=== PATIENT | male | born 1945 | race Caucasian/White ===

== ENCOUNTER 2017-01-22 19:39 | Emergency (ER) | payer OTHER ==
[~2017-01-22] VITALS: Ht 177.8 cm; Wt 79.4 kg
[2017-01-22 19:51] VITALS: BP 149/89
[2017-01-22 20:20] LABS: Basophils # (auto) 0 uL; Eosinophils # (auto) 0.1 uL; Eosinophils % (auto) 1.6 % (0.0-7.0); Hematocrit 34.3 % (41.0-53.0); Hemoglobin 11.5 g/dL (13.5-17.5); Lymphocytes # (auto) 0.7 uL; Lymphocytes % (auto) 8.2 % (10.0-50.0); Mean Corpuscular Hemoglobin 30.5 pg (28.0-32.0); Mean Corpuscular Hgb Conc. 33.4 g/dL (32.0-36.0); Mean Corpuscular Volume 91.3 fL (80.0-100.0); Mean Platelet Volume 7.9 fL (7.4-10.4); Monocytes # (auto) 0.3 uL; Monocytes % (auto) 3.2 % (0.0-12.0); Neutrophils # (auto) 7.7 uL; Platelet Count (auto) 240 10^3/uL (140-450); Red Cell Distribution Width 16.9 % (11.6-16.0); White Blood Cell 8.8 10^3/uL (4.4-10.8)
[2017-01-22 20:49] LABS: Albumin 2.9 g/dL (3.4-5.0); Alkaline Phosphatase 359 U/L (45-117); Anion Gap 10 (5-15); Aspartate Aminotransferase 22 U/L (15-37); Bilirubin, Total 0.4 mg/dL (0.2-1.0); Blood Urea Nitrogen 32 mg/dL (7-18); Calcium 9.5 mg/dL (8.5-10.1); Carbon Dioxide 27 mmol/L (21-32); Chloride 100 mmol/L (98-107); GFR African American 74 mL/min; GFR Non-African American 61 mL/min; Glucose 210 mg/dL (74-106); Magnesium 1.6 mg/dL (1.6-2.6); Potassium 4.2 mmol/L (3.5-5.1); Sodium 137 mmol/L (136-145); Total Protein 7.7 g/dL (6.4-8.2)
[2017-01-23] MEDS ORDERED: LISI10TA6 PO ×2 (11:59→12:02)
[2017-01-23] MEDS ORDERED: METF-316 PO (12:00)
[2017-01-23] MEDS ORDERED: GLIP-115 PO (12:02)
[2017-01-24] MEDS ORDERED: ALBUAER3 IN (17:30)
[2017-01-24] MEDS ORDERED: IPRIH IN (17:30)
[2017-01-24] MEDS ORDERED: LEVO500T3 PO (17:30)
[2017-01-24] MEDS ORDERED: DEXTLIQ70 PO (17:30)
== END 2017-01-23 00:42 | disposition left against medical advice (07) ==
LOC: ER 19:39
DX: R06.02 Shortness of breath (principal); R05 Cough; Z53.21 Procedure and treatment not carried out due to patient leaving prior to being seen by health care provider
CPT/HCPCS: 36415; 71010; 80053; 83735; 84484; 85025; 85379; 93005; J7030

== ENCOUNTER 2020-07-06 21:32 | Inpatient (IN) | payer OTHER ==
[~2020-07-06] VITALS: Ht 177.8 cm; Wt 83.3 kg
[~2020-07-06 21:32] MED LIST: ASPI-394 PO; DEXA4TAB PO; GLIP5TAB12 PO; LISI-648 PO; MET25T PO
[2020-07-06] MEDS ORDERED: ALBUTEROL SULF 2.5 MG/0.5ML(0.5%) NEB SOLN NEB ONE (22:00)
[2020-07-06] MEDS ORDERED: methylPREDNISolone SOD SUCC 125 MG/2 ML VL IV ONE (22:00)
[2020-07-06] MEDS ORDERED: SODIUM CHLORIDE 0.9% 500 ML IV ONE (22:00)
[2020-07-06] MEDS ORDERED: IPRATROPIUM BROM 0.5 MG/2.5ML INH SOL NEB ONE (22:00)
[2020-07-06 22:31] LABS: Basophils # (auto) 0.1 10 ^3/uL (0-0.2); Eosinophils # (auto) 0 10 ^3/uL (0-0.8); Lymphocytes # (auto) 1.1 10 ^3/uL (0.4-5.4)
[2020-07-06 22:32] LABS: Basophils % (auto) 0.4 % (0.0-2.0); Eosinophils % (auto) 0.3 % (0.0-7.0); Hematocrit 21.9 % (41.0-53.0); Lymphocytes % (auto) 5.8 % (10.0-50.0); Mean Corpuscular Hemoglobin 31.8 pg (28.0-32.0); Mean Corpuscular Hgb Conc. 32.2 g/dL (32.0-36.0); Mean Corpuscular Volume 98.9 fL (80.0-100.0); Monocytes # (auto) 0.8 10 ^3/uL (0-1.3); Monocytes % (auto) 4.3 % (0.0-12.0); Neutrophils # (auto) 16.6 10 ^3/uL (1.6-8.6); Neutrophils % (auto) 89.2 % (37.0-80.0); Platelet Count (auto) 195 10^3/uL (140-450); Red Blood Cells 2.21 10^6/uL (4.5-5.90); White Blood Cell 18.6 10^3/uL (4.4-10.8)
[2020-07-06 22:52] LABS: Alanine Aminotransferase 72 U/L (16-61); Albumin 3.7 g/dL (3.4-5.0); Anion Gap 16 (5-15); Aspartate Aminotransferase 75 U/L (15-37); BUN/Creatinine Ratio 15.8; Calcium 9.7 mg/dL (8.5-10.1); Carbon Dioxide 10 mmol/L (21-32); Chloride 112 mmol/L (98-107); GFR African American 7 mL/min; GFR Non-African American 6 mL/min; Glucose 243 mg/dL (74-106); Magnesium 2.1 mg/dL (1.6-2.6); Sodium 138 mmol/L (136-145)
[2020-07-06 22:55] LABS: Alkaline Phosphatase 154 U/L (45-117); Bilirubin, Total 0.6 mg/dL (0.2-1.0); Total Protein 7.3 g/dL (6.4-8.2)
[2020-07-06 23:09] LABS: Potassium 7.4 mmol/L (3.5-5.1)
[2020-07-06 23:10] LABS: Blood Urea Nitrogen 148 mg/dL (7-18)
[2020-07-06] MEDS ORDERED: SODIUM BICARBONATE 8.4% INJ 50ML SYRINGE IV ONE (23:15)
[2020-07-06] MEDS ORDERED: CALCIUM GLUC 4.65meq/50ml D5AE 50 ML IV ONE (23:15)
[2020-07-06] MEDS ORDERED: DEXTROSE (50%) 50ML SYRG IV ONE (23:15)
[2020-07-06] MEDS ORDERED: InsuLIN REG 1unit/0.01ml Soln (100units/ml) IV ONE (23:15)
[2020-07-06] MEDS ORDERED: FUROSEMIDE 20 MG/2 ML VIAL IV ONE (23:15)
[2020-07-06] MEDS ORDERED: SODIUM ZIRCONIUM CYCL 10 GM PAK PO ONE (23:45)
[2020-07-07] VITALS (41 sets, daily range): BP systolic 81–180; BP diastolic 47–81
[2020-07-07 00:21] LABS: INR 0.99 (0.9-1.15); Partial Thromboplastin Time 22.6 sec (23.0-31.2)
[2020-07-07] MEDS ORDERED: MORPHINE SULFATE 4 MG/ML SYR/VIAL IV ONE (01:00)
[2020-07-07] MEDS ORDERED: ONDANSETRON HCL 4 MG/2 ML VIAL IV ONE (01:00)
[2020-07-07] MEDS ORDERED: SODIUM CHLORIDE 0.9% 1,000 ML IV ONE (01:15)
[2020-07-07 01:35] LABS: Urine Bacteria NONE SEEN /hpf (None Seen); Urine Blood 2+ /uL (Negative); Urine Specific Gravity 1.012 (1.001-1.035); Urine WBC 2 /hpf (0 - 3)
[2020-07-07] MEDS ORDERED: ENOXAPARIN SOD 80 MG/0.8ML SYRINGE SC ONE (01:45)
[2020-07-07] MEDS ORDERED: VANCOMYCIN 1GM/250ML 250 ML IV ONE (01:45)
[2020-07-07] MEDS ORDERED: PIPERACILLIN-TAZOB 3.375GM 100 ML IV ONE (01:45)
[2020-07-07 02:12] LABS: BUN/Creatinine Ratio 16.1; Calcium 10.3 mg/dL (8.5-10.1)
[2020-07-07 02:14] LABS: Potassium 5.9 mmol/L (3.5-5.1)
[2020-07-07 02:40] LABS: Lactic Acid w/Reflex 6.4 mmol/L (0.4-2.0)
[2020-07-07] MEDS ORDERED: ACETAMINOPHEN 325 MG TAB PO PRN (02:45)
[2020-07-07] MEDS ORDERED: ENOXAPARIN SOD 100 MG/1 ML SYRINGE SC ONE (02:45)
[2020-07-07] MEDS ORDERED: DEXTROSE (50%) 50ML SYRG IV PRN (02:45)
[2020-07-07] MEDS ORDERED: NITROGLYCERIN 0.4 MG SL TAB SL PRN (02:45)
[2020-07-07] MEDS ORDERED: TEMAZEPAM 15 MG CAP PO PRN (02:45)
[2020-07-07] MEDS ORDERED: SODIUM ZIRCONIUM CYCL 10 GM PAK PO ONE ×2 (02:45→22:00)
[2020-07-07] MEDS ORDERED: MORPHINE SULF INJ 2 MG/ML SYRINGE 1ML IV PRN (02:45)
[2020-07-07 03:12] LABS: Albumin 3.5 g/dL (3.4-5.0); CRP High Sensitivity 0.24 mg/dL (< 0.3)
[2020-07-07 03:14] LABS: Magnesium 2.1 mg/dL (1.6-2.6)
[2020-07-07 03:16] LABS: Bilirubin, Total 0.6 mg/dL (0.2-1.0)
[2020-07-07] MEDS ORDERED: LABETALOL HCL 5 MG/ML 4ML SYRINGE IV ONE (03:30)
[2020-07-07] MEDS: DOXYCYCLINE 100MG/250ML 250 ML IV SCH (04:48)
[2020-07-07] MEDS: ACCU-CHEK COMFORT CURVE STRIP VI SCH ×3 (05:57→23:01)
[2020-07-07] MEDS ORDERED: InsuLIN REG 1unit/0.01ml Soln (100units/ml) SC SCH (06:00)
[2020-07-07 07:57] LABS: Hemoglobin 7.2 g/dL (13.5-17.5)
[2020-07-07 07:58] LABS: Hematocrit 22.5 % (41.0-53.0)
[2020-07-07] MEDS ORDERED: LISINOPRIL 10 MG TAB PO SCH (10:00)
[2020-07-07] MEDS: PANTOPRAZOLE 40 MG TAB PO SCH (10:00)
[2020-07-07] MEDS: METOPROLOL TARTRATE 25 MG TAB PO SCH ×2 (10:00→22:00)
[2020-07-07] MEDS: CHOLECALCIFEROL (VITD3) 2,000 UNIT CAP PO SCH (10:00)
[2020-07-07] MEDS: ZINC SULFATE 220mg CAP or TAB PO SCH (10:00)
[2020-07-07] MEDS: ASCORBIC ACID 1,000 MG TAB PO SCH (10:00)
[2020-07-07] MEDS ORDERED: ASPirin 81 mg TAB PO SCH (10:00)
[2020-07-07] MEDS: ONDANSETRON HCL 4 MG/2 ML VIAL IV PRN (11:09)
[2020-07-07] MEDS ORDERED: HEPARIN DRIP/D5W 100UNITS/ML 250 ML IV SCH (11:31)
[2020-07-07] MEDS ORDERED: HEPARIN SODIUM (PORCINE) 5000 UNITS/ML 1ML VIAL IV ONE (11:45)
[2020-07-07] MEDS ORDERED: LIDOCAINE 2%HCL (LOCAL ANESTH.) INJ 20ML MDV ONE (11:52)
[2020-07-07] MEDS ORDERED: IODIXANOL 320MG/ML 100ML BTL IV ONE (11:52)
[2020-07-07] MEDS ORDERED: SODIUM CHL 0.9% 50 ML ONE (12:03)
[2020-07-07] MEDS ORDERED: VERAPAMIL 2.5MG/ML INJ 2ML VIAL IV ONE (12:03)
[2020-07-07] MEDS ORDERED: ANGIOMAX 250 MG VIAL IV ONE (12:03)
[2020-07-07] MEDS ORDERED: MIDAZOLAM HCL 1MG/1ML-2 ML VIAL ONE (12:04)
[2020-07-07] MEDS ORDERED: fentaNYL CITRATE 100 MCG/2 ML VL ONE (12:04)
[2020-07-07] MEDS ORDERED: SODIUM BICARBONATE 50ML VIAL 100 ML in SOD CHL 0.45% 1,000 ML IV SCH (12:30)
[2020-07-07] MEDS ORDERED: SODIUM CHL 0.9% 1000 ML BAG XX ONE (12:30)
[2020-07-07] MEDS ORDERED: HEPARIN SODIUM (PORCINE) 5000 UNITS/ML 1ML VIAL ONE ×2 (13:12→15:46)
[2020-07-07 13:32] LABS: Protein, Urine 192.6 mg/dL (0.0-11.9)
[2020-07-07 13:44] LABS: Creatinine, Urine 67 mg/dL (30.0-125.0); Sodium Urine 58 mmol/L (40-220)
--- NOTE | 2020-07-07 15:30 | NUR ---
ADMIT TO ICU-S/P CARDIAC CATH Report received from Daniela DEL VALLE. ARABELLA HIGGINS brought to bed 5-warehouse laborer following left Cardiac catheterization. Patient connected to ICU monitoring and oxygen. Patient is awake, alert, and oriented. Patient able to follow commands. Denies pain or distress at this time. Right groin used as access site. Patient educated on need to keep leg straight and flat. Patient verbalized understanding. Site assessed for any bleeding, redness or swelling. Pedal pulses on affected leg assessed for positive tissue perfusion. Patient instructed on need to notify staff immediately if any pain, burning or wetness to site, and any lower back pain. Patient educated on new cardiac medications. All questions and concerns addressed, patient verbalized understanding of all education and instruction. See notes for any further. Physical assessment complete. Alberto locked in lowest position, call light and personal belongings within reach. Will continue to monitor.
--- NOTE | 2020-07-07 16:25 | NUR ---
ALOC PT HEART RATE TRENDING 45 BPM, NOTED IT WAS LOWER THAN PATIENTS BASELINE. ATTEMPTED TO AROUSE PATIENT. PATIENT EYES OPEN AND BREATHING BUT UNABLE TO RESPOND VERBALLY. PAINFUL STIMULI USED TO GET VERBAL RESPONSE, PT UNABLE TO TRACK AND STATE HIS NAME. ASSEMBLER FAUCETS HOLDING DIALYSIS TREATMENT AT THIS TIME. BLOOD PRESSURE TRENDING 81/47. PATIENT POSITIONED SUPINE. SHORTLY AFTER DIALYSIS TREATMENT HELD, PATIENT BECAME MORE AWAKE AND ALERT. PT ABLE TO STATE FIRST AND LAST NAME, WELL BIRTHDAY. PT STATING "I FEEL MUCH BETTER NOW". PT ABLE TO CARRY ON FULL CONVERSATION. BLOOD PRESSURE RETURNED TO BASELINE 104/58.
--- NOTE | 2020-07-07 16:28 | NUR ---
PAGED PAGED REGARDING HYPOTENSION AND DIALYSIS TREATMENT. MD AWARE OF PATIENT EPISODE WITH BLOOD PRESSURE 80 SYSTOLIC AND ALERTED MENTAL STATUS. MD ORDERED FOR VASOPRESSOR THERAPY TO KEEP SYSTOLIC GREATER THAN 90, CONTINUE WITH DIALYSIS TREATMENT.
--- NOTE | 2020-07-07 17:00 | NUR ---
US CLAMP OPERATOR AT BEDSIDE FOR KIDNEY US.
[2020-07-07] MEDS: NOREPINEPHRINE 8 MG/250ML KIT 250 ML IV SCH (17:04)
--- NOTE | 2020-07-07 17:30 | NUR ---
LAB SPANISH SPEAKING NANNY AT BEDSIDE FOR BLOOD DRAW. LABS RE-TIMED DUE TO PATIENT RECEIVING DIALYSIS AT THIS TIME.
[2020-07-07] MEDS: InsuLIN REG 1unit/0.01ml Soln (100units/ml) SC SCH ×2 (18:05→23:10)
--- NOTE | 2020-07-07 18:30 | NUR ---
DIALYSIS COMPLETE NO FLUID REMOVED, JUST FILTERED.
--- NOTE | 2020-07-07 18:40 | NUR ---
ACTIVITY PT AMBULATED TO BED WITH STANDBY ASSISTANCE. PT TOLERATED ACTIVITY FAIR. WHEEZING NOTED AFTER AMBULATION. RIGHT GROIN SITE REMAINS INTACT. NO BLEEDING OR HEMATOMA NOTED. PT RESTING, EATING DINNER WITH PERSONAL BELONGINGS WITHIN REACH.
--- NOTE | 2020-07-07 18:45 | NUR ---
FAMILY SPOKE WITH ABOUT PATIENT. UPDATED ON STATUS AND PLAN OF CARE.
--- NOTE | 2020-07-07 19:18 | NUR ---
REPORT REPORT GIVEN TO JOAN DEL VALEL, CARE ENDORSED.
--- NOTE | 2020-07-07 19:20 | NUR ---
OPENING ASSUMED CARE OF PT. PT ASLEEP IN BED WITH VSS AND NO DISTRESS AT THIS TIME. ORIENTED TO UNIT, SAFETY, AND PLAN OF CARE FOR THIS EVENING. VERBALIZED UNDERSTANDING. LEVO GTT HELD BY DAYSHIFT RN FOR STABLE BP. 1/2 NS 2 AMPS BICARB RUNNING AT 50ML/HR. ALL OTHER ASSESSMENT DATA NOTED IN CHART.
[2020-07-07] MEDS ORDERED: EPOETIN ALFA 10,000 UNIT/1 ML VIAL SC ONE (21:00)
[2020-07-07 21:29] LABS: Basophils # (auto) 0 10 ^3/uL (0-0.2); Basophils % (auto) 0.1 % (0.0-2.0); Eosinophils # (auto) 0 10 ^3/uL (0-0.8); Lymphocytes # (auto) 0.5 10 ^3/uL (0.4-5.4); Monocytes # (auto) 0.7 10 ^3/uL (0-1.3); Platelet Count (auto) 100 10^3/uL (140-450)
[2020-07-07 21:31] LABS: Hematocrit 16.2 % (41.0-53.0); Lymphocytes % (auto) 3.2 % (10.0-50.0); Mean Corpuscular Hemoglobin 33.1 pg (28.0-32.0); Mean Corpuscular Hgb Conc. 34.6 g/dL (32.0-36.0); Mean Corpuscular Volume 95.8 fL (80.0-100.0); Monocytes % (auto) 4.8 % (0.0-12.0); Neutrophils # (auto) 13.5 10 ^3/uL (1.6-8.6); Neutrophils % (auto) 91.9 % (37.0-80.0); Red Blood Cells 1.69 10^6/uL (4.5-5.90); Red Cell Distribution Width 15.8 % (11.8-14.3); White Blood Cell 14.7 10^3/uL (4.4-10.8)
[2020-07-07 21:35] LABS: BUN/Creatinine Ratio 15.6; Calcium 8.5 mg/dL (8.5-10.1)
[2020-07-07 21:36] LABS: Albumin 3.1 g/dL (3.4-5.0); Bilirubin, Direct 0.2 mg/dL (0-0.2)
[2020-07-07 21:38] LABS: Hemoglobin 5.6 g/dL (13.5-17.5)
[2020-07-07 21:40] LABS: Bilirubin, Total 0.6 mg/dL (0.2-1.0); Total Protein 5.6 g/dL (6.4-8.2)
[2020-07-07 21:43] LABS: Potassium 5.6 mmol/L (3.5-5.1)
--- NOTE | 2020-07-07 21:49 | NUR ---
PAGED [facility] TO REPORT CRITICAL LAB VALUES. SPOKE WITH MD BROWN. NEW ORDERS RECEIVED, NOTED IN CHART. ORDERED LABS IN AM, SAID TO NOT DRAW 0000 LABS DUE TO PT GETTING TRANSFUSION. GAVE STANDING ORDERS FOR AM LABS: IF POTASSIUM IS GREATER THAN 5.5 GIVE 1 AMP BICARB, DEXTROSE 50%, 6 UNITS REGULAR INSULIN, AND LOKELMA 10GRAMS. Addendum: 07/07/20 at 2317 by JOAN GARCIA RN RN ORDERED 80MG LASIX IV PUSH POST PRBC TRANSFUSION.
[2020-07-07] MEDS ORDERED: FUROSEMIDE 100 MG/10ML VIAL IV ONE (22:00)
[2020-07-07] MEDS: ATORVASTATIN 20 MG TAB PO SCH (23:00)
[2020-07-08] VITALS (51 sets, daily range): BP systolic 79–143; BP diastolic 36–70
--- NOTE | 2020-07-08 01:16 | NUR ---
1 UNIT PRBC INFUSION COMPLETE. PT TOLERATED WELL WITH NO ALOC, DIZZINESS/LIGHTHEADEDNESS, OR S/S OF TRANSFUSION REACTION NOTED. VSS. WILL ADMINISTER 80MG LASIX PER DR. BROWN ORDERS.
[2020-07-08] MEDS: DOXYCYCLINE 100MG/250ML 250 ML IV SCH ×3 (02:06→21:30)
[2020-07-08] MEDS: InsuLIN REG 1unit/0.01ml Soln (100units/ml) SC SCH ×5 (02:10→21:58)
[2020-07-08] MEDS: ONDANSETRON HCL 4 MG/2 ML VIAL IV PRN (05:15)
--- NOTE | 2020-07-08 05:15 | NUR ---
STERILE DRESSING CHANGE DONE TO CELSA CATHETER SITE. SMALL AMOUNT OF BLEEDING/BRUISING NOTED. SITE CIRCLED AROUND CATHETER. NEW DRESSING IS CLEAN,DRY, INTACT. THIS RN WILL MONITOR FOR ANY S/S OF BLEEDING. VITAL SIGNS STABLE- PT IS NOT TACHYCARDIC, TACHYPNEIC, AND HAS STABLE BP READINGS.
[2020-07-08 05:23] LABS: Basophils # (auto) 0 10 ^3/uL (0-0.2); Eosinophils # (auto) 0 10 ^3/uL (0-0.8); Lymphocytes # (auto) 0.4 10 ^3/uL (0.4-5.4); Monocytes # (auto) 0.8 10 ^3/uL (0-1.3)
[2020-07-08 05:24] LABS: Basophils % (auto) 0.1 % (0.0-2.0); Hematocrit 18.2 % (41.0-53.0); Lymphocytes % (auto) 3.1 % (10.0-50.0); Mean Corpuscular Hemoglobin 31.9 pg (28.0-32.0); Mean Corpuscular Hgb Conc. 34.8 g/dL (32.0-36.0); Mean Corpuscular Volume 91.8 fL (80.0-100.0); Monocytes % (auto) 6.4 % (0.0-12.0); Neutrophils # (auto) 11.5 10 ^3/uL (1.6-8.6); Neutrophils % (auto) 90.4 % (37.0-80.0); Nucleated Red Blood Cells % 0.1 %; Platelet Count (auto) 70 10^3/uL (140-450); Red Blood Cells 1.99 10^6/uL (4.5-5.90); Red Cell Distribution Width 16.3 % (11.8-14.3); White Blood Cell 12.7 10^3/uL (4.4-10.8)
[2020-07-08 05:28] LABS: Hemoglobin 6.3 g/dL (13.5-17.5)
--- NOTE | 2020-07-08 05:30 | NUR ---
IV INSERTION NEW IV PLACED TO LEFT HAND/WRIST AREA. 20G AFTER 1 ATTEMPT USING CLEAN TECHNIQUE. PT TOLERATED WELL WITH NO S.S OF DISTRESS OR PAIN. IV HAS POSITIVE BLOOD RETURN. DRESSING IS TIMED, DATED, AND INITIALED.
[2020-07-08 05:39] LABS: Albumin 2.9 g/dL (3.4-5.0)
[2020-07-08 05:44] LABS: Bilirubin, Total 0.8 mg/dL (0.2-1.0); Total Protein 5.5 g/dL (6.4-8.2)
[2020-07-08 05:45] LABS: Potassium 5.6 mmol/L (3.5-5.1)
[2020-07-08] MEDS: ACCU-CHEK COMFORT CURVE STRIP VI SCH ×3 (06:00→21:57)
--- NOTE | 2020-07-08 06:00 | NUR ---
0600 insulin/accucheck held held pending clarification. Insulin frequency says Q4H, but also says NPO- mild sliding scale on e-MAR. pt is not npo at this time- has been on a consistent carb diet. Accucheck order says Q6H. Pt serum glucose with 0512 labs says 138. Will monitor pt for s/s of hypo and hyperglycemia.
--- NOTE | 2020-07-08 06:13 | NUR ---
CRITICAL LAB VALUES CAME BACK STANDING ORDERS IN PLACE FOR BOTH CRITICAL LAB VALUES. WILL FOLLOW THROUGH.
[2020-07-08] MEDS ORDERED: DEXTROSE (50%) 50ML SYRG IV ONE (06:15)
[2020-07-08] MEDS ORDERED: SODIUM BICARBONATE 8.4 % INJ 50ML VIAL IV ONE (06:15)
[2020-07-08] MEDS ORDERED: SODIUM ZIRCONIUM CYCL 10 GM PAK PO ONE (06:15)
[2020-07-08] MEDS ORDERED: InsuLIN REG 1unit/0.01ml Soln (100units/ml) IV ONE (06:15)
--- NOTE | 2020-07-08 07:06 | NUR ---
blood transfusion begin PER MD HUGGINS GIVE 2 UNITS PRBCS IF HGB IS < 8. AM LABS SHOWED HGB OF 6.3. 1ST OF TWO UNITS BEGAN. ENDORSED TRANSFUSION TO DAISY DEL VALLE.
--- NOTE | 2020-07-08 07:30 | NUR ---
REPORT GIVEN TO DAISY DEL VALLE. MADE HER AWARE OF ONGOING TRANSFUSION, PT CONDITION, AND MEDICATIONS GIVEN TO TREAT CRITICAL LAB VALUES PER MD ORDERS. Addendum: 07/08/20 at 0801 by JOAN GARCIA RN RN SHOWED HER PTS CELSA CATH SITE WELL SO SHE CAN CONTINUE TO MONITOR FOR S/S OF BLEEDING/HEMATOMA.
[2020-07-08 08:09] LABS: Immunoglobulin G, Serum 199 mg/dL (603-1613)
[2020-07-08] MEDS ORDERED: SODIUM ZIRCONIUM CYCL 10 GM PAK PO SCH (08:15)
[2020-07-08] MEDS: SODIUM BICARBONATE 50ML VIAL 50 ML in SOD CHL 0.45% 1,000 ML IV SCH ×2 (08:15→12:30)
[2020-07-08] MEDS: CHOLECALCIFEROL (VITD3) 2,000 UNIT CAP PO SCH (10:00)
[2020-07-08] MEDS: PANTOPRAZOLE 40 MG TAB PO SCH (10:00)
[2020-07-08] MEDS: ASCORBIC ACID 1,000 MG TAB PO SCH (10:00)
[2020-07-08] MEDS: METOPROLOL TARTRATE 25 MG TAB PO SCH ×2 (10:00→21:36)
[2020-07-08] MEDS: ZINC SULFATE 220mg CAP or TAB PO SCH (10:00)
[2020-07-08] MEDS ORDERED: ACCU-CHEK COMFORT CURVE STRIP VI SCH (10:00)
--- NOTE | 2020-07-08 12:28 | NUR ---
Pt awake and oriented times four .Pt denies chest pain /generalised pain In sinus rythym with BBB no ectopy.VSS Blood running 1 st of two units for H/H of 6.3/18.2 no signs of reaction noted No eodema noted Addendum: 07/08/20 at 1314 by DEN DISLA RN RN Some haematoma noted on groin still Plateletes down to 70 from 150 on admission Addendum: 07/08/20 at 1317 by DEN DISLA RN RN Pt has haematoma on the right groin already marked by shift supervisor rn a little hard Addendum: 07/08/20 at 1318 by DEN DISLA RN RN Pt seen by Dr Trejo and los ordered 1 unit of Platelets Addendum: 07/08/20 at 1325 by DEN DISLA RN RN Seen by Dr Deras for Dialysis tomorrow Pt had no urine overnight at all and till 1100 just voided 200 ccs of clear yellow
[2020-07-08] MEDS ORDERED: DEXTROSE (50%) 50ML SYRG IV PRN (13:00)
[2020-07-08 13:25] LABS: BUN/Creatinine Ratio 13.4; Calcium 7.6 mg/dL (8.5-10.1)
[2020-07-08] MEDS: SODIUM ZIRCONIUM CYCL 10 GM PAK PO SCH ×2 (14:00→21:30)
--- NOTE | 2020-07-08 19:18 | NUR ---
Report received from IVON Becker. Patient on RA. S/P Cardiac Cath. IVF 0.45% with 1 amp Na Bicarb infusion at 100 ml/hr. Plalets infusion in progress. Will continue with POC; and, will continue to monitor VS and clinical status.
--- NOTE | 2020-07-08 20:10 | NUR ---
Platelet infusion complete. No Transfusion Reaction Noted. See e- Blood Transfusion Record. Addendum: 07/08/20 at 2040 by DEN DISLA RN RN says has esophageal Hernia
--- NOTE | 2020-07-08 21:15 | NUR ---
Media Clerk at bedside. Blood collected and specimen sent to lab.
[2020-07-08 21:25] LABS: Basophils # (auto) 0 10 ^3/uL (0-0.2); Eosinophils # (auto) 0 10 ^3/uL (0-0.8); Lymphocytes # (auto) 0.3 10 ^3/uL (0.4-5.4); Mean Corpuscular Hemoglobin 31.3 pg (28.0-32.0); Neutrophils # (auto) 8.2 10 ^3/uL (1.6-8.6); Nucleated Red Blood Cells % 0.1 %; Red Blood Cells 2.25 10^6/uL (4.5-5.90); Red Cell Distribution Width 16.6 % (11.8-14.3)
[2020-07-08 21:27] LABS: Basophils % (auto) 0.1 % (0.0-2.0); Eosinophils % (auto) 0.3 % (0.0-7.0); Hematocrit 20.4 % (41.0-53.0); Hemoglobin 7.1 g/dL (13.5-17.5); Lymphocytes % (auto) 3.1 % (10.0-50.0); Mean Corpuscular Hgb Conc. 34.7 g/dL (32.0-36.0); Mean Corpuscular Volume 90.4 fL (80.0-100.0); Monocytes # (auto) 0.4 10 ^3/uL (0-1.3); Monocytes % (auto) 4.8 % (0.0-12.0); Neutrophils % (auto) 91.7 % (37.0-80.0); Platelet Count (auto) 71 10^3/uL (140-450); White Blood Cell 8.9 10^3/uL (4.4-10.8)
[2020-07-08] MEDS: ATORVASTATIN 20 MG TAB PO SCH (21:30)
[2020-07-08 21:42] LABS: BUN/Creatinine Ratio 14.2; Calcium 7.3 mg/dL (8.5-10.1); Potassium 4.9 mmol/L (3.5-5.1)
--- NOTE | 2020-07-08 21:42 | NUR ---
CRITICAL LAB: Eric called automatic typewriter inspector with BUN 102. CBC resulted: H&H 7.1 & 20.4, PLT 71. Will wait for BMP to result before contacting Hospitalist.
--- NOTE | 2020-07-08 22:00 | NUR ---
Rtn scheduled meds given. See e-MAR.
--- NOTE | 2020-07-08 22:00 | NUR ---
Accucheck 139 mg/dl. Patient covered with Regular Insulin 2 units SQ per SS.
--- NOTE | 2020-07-08 22:01 | NUR ---
Hospitalist paged to report Critical Lab and updated H&H and PLT.
--- NOTE | 2020-07-08 22:03 | NUR ---
Hospitalist Dr. Dolan return call. updated with CRITICAL LAB BUN 102. also updated with Cr 7.2 and patient will be dialized tomorrow. Also, updated with H&H 7.1 & 20.4 with PLTS 71, PRBC Transfusion 2 units and Platelets Transfusion 2 units today. No orders received.
[2020-07-09] VITALS (32 sets, daily range): BP systolic 94–154; BP diastolic 44–95
--- NOTE | 2020-07-09 00:17 | NUR ---
Carpenter Helper Maintenance at bedside. Blood collected and specimen sent to lab.
[2020-07-09 01:11] LABS: BUN/Creatinine Ratio 14.2; Calcium 7.1 mg/dL (8.5-10.1); Potassium 4.5 mmol/L (3.5-5.1)
--- NOTE | 2020-07-09 01:15 | NUR ---
CRITICAL LAB: Eric called senior mortgage underwriter and reported BUN 105.
--- NOTE | 2020-07-09 02:50 | NUR ---
Patient medicated with Restoril 15 mg PO at his request.
[2020-07-09] MEDS: SODIUM ZIRCONIUM CYCL 10 GM PAK PO SCH ×2 (05:58→14:00)
[2020-07-09] MEDS: SODIUM BICARBONATE 50ML VIAL 50 ML in SOD CHL 0.45% 1,000 ML IV SCH ×2 (06:00→15:32)
--- NOTE | 2020-07-09 06:00 | NUR ---
Rtn scheduled meds given. See e-MAR.
[2020-07-09] MEDS: InsuLIN REG 1unit/0.01ml Soln (100units/ml) SC SCH ×4 (06:57→22:32)
[2020-07-09] MEDS: ACCU-CHEK COMFORT CURVE STRIP VI SCH ×4 (06:57→22:32)
--- NOTE | 2020-07-09 06:58 | NUR ---
Accucheck 92 mg/dl. No coverage indicated.
--- NOTE | 2020-07-09 07:50 | NUR ---
ASSESS- PT. LYING IN BED AWAKE, ALERT AND ORIENTED TIMES FOUR. DENIES ANY PAIN OR DISCOMFORT AT THIS TIME. LUNGS CLEAR MARIE. INSPIRATORY AND EXPIRATORY, DIMINISHED BASES MARIE. NO SOB. ON R/A. ABD. SOFT, FLAT, NON-TENDER. BOWEL SOUNDS ALL FOUR QUADRANTS. NO N/V. VOIDS VIA URINAL. RADIAL PULSES STRONG, PALPABLE MARIE. DORSALIS PEDAL PULSES STRONG, PALPABLE MARIE. NO EDEMA. AYE CATHETER RT. FEMORAL INTACT. LG. BRUISE RT. GROIN/HEMATOMA, SOFT WHERE PT. PREVIOUSLY HAS LHC SITE.
[2020-07-09] MEDS: NOREPINEPHRINE 8 MG/250ML KIT 250 ML IV SCH ×2 (09:35→15:17)
[2020-07-09] MEDS: DOXYCYCLINE 100MG/250ML 250 ML IV SCH (09:36)
[2020-07-09] MEDS: ASCORBIC ACID 1,000 MG TAB PO SCH (09:36)
[2020-07-09] MEDS: PANTOPRAZOLE 40 MG TAB PO SCH (09:36)
[2020-07-09] MEDS: ZINC SULFATE 220mg CAP or TAB PO SCH (09:36)
[2020-07-09] MEDS: METOPROLOL TARTRATE 25 MG TAB PO SCH ×2 (09:36→22:39)
[2020-07-09] MEDS: CHOLECALCIFEROL (VITD3) 2,000 UNIT CAP PO SCH (09:36)
--- NOTE | 2020-07-09 09:59 | NUR ---
DR. BROWN CALLED. ORDERED HD AND TO TRANSFUSE 2 UNITS PRBC'S WITH HD TODAY. NEW ORDER PLACED.
[2020-07-09] MEDS ORDERED: SODIUM CHL 0.9% 1000 ML BAG XX ONE (10:00)
[2020-07-09 10:23] LABS: Basophils # (auto) 0 10 ^3/uL (0-0.2); Eosinophils # (auto) 0.1 10 ^3/uL (0-0.8); Lymphocytes # (auto) 0.2 10 ^3/uL (0.4-5.4); Monocytes # (auto) 0.4 10 ^3/uL (0-1.3); Neutrophils % (auto) 87.9 % (37.0-80.0); Platelet Count (auto) 57 10^3/uL (140-450)
[2020-07-09 10:35] LABS: Basophils % (auto) 0.1 % (0.0-2.0); Eosinophils % (auto) 1.3 % (0.0-7.0); Lymphocytes % (auto) 3.7 % (10.0-50.0); Mean Corpuscular Hemoglobin 31.2 pg (28.0-32.0); Mean Corpuscular Hgb Conc. 34.5 g/dL (32.0-36.0); Mean Corpuscular Volume 90.4 fL (80.0-100.0); Neutrophils # (auto) 5.6 10 ^3/uL (1.6-8.6); Nucleated Red Blood Cells % 0.2 %; Red Blood Cells 2.21 10^6/uL (4.5-5.90); Red Cell Distribution Width 16.4 % (11.8-14.3); White Blood Cell 6.3 10^3/uL (4.4-10.8)
[2020-07-09 10:36] LABS: BUN/Creatinine Ratio 13.1; Calcium 6.9 mg/dL (8.5-10.1); Potassium 4.1 mmol/L (3.5-5.1)
[2020-07-09 10:37] LABS: Hemoglobin 6.9 g/dL (13.5-17.5)
--- NOTE | 2020-07-09 11:35 | NUR ---
DR. LUCIANO Provider/Hospitalist at bedside FOR CONSULT.
[2020-07-09] MEDS ORDERED: LACTULOSE 20Gm/30ML SOLN PO PRN (11:45)
[2020-07-09] MEDS: ONDANSETRON HCL 4 MG/2 ML VIAL IV PRN ×2 (12:06→19:58)
--- NOTE | 2020-07-09 12:06 | NUR ---
PT. SAID HE IS NAUSEATED, NO EMESIS. MED. PT. WITH ZOFRAN 4MG. IVP.
--- NOTE | 2020-07-09 13:05 | NUR ---
PT. NO LONGER NAUSEATED. ABLE TO EAT LUNCH.
--- NOTE | 2020-07-09 13:09 | NUR ---
DR. FIELD CALLED. GAVE UPDATE ON PT. SAID PT. MAY GO TO TELEMETRY AFTER HEMODIALYSIS IF STABLE TONIGHT.
--- NOTE | 2020-07-09 13:40 | NUR ---
DR. Je GRIDER Provider/Hospitalist at bedside. GAVE UPDATE ON PT. NEW ORDERS RECEIVED.
--- NOTE | 2020-07-09 13:58 | NUR ---
Called/paged Dr. BROWN called re:. Waiting for call back. Continue care.
--- NOTE | 2020-07-09 14:15 | NUR ---
returned call Dr. BROWN returned call, updated on patient status and reason for call, orders received. Continue care.
--- NOTE | 2020-07-09 16:15 | NUR ---
PT. TRANSFERRED TO ICU RM. 111 VIA BED ON PORTABLE SHAFT HEADMAN, ON R/A. BELONGINGS WITH PTMalcolm WELDON RN CONTINUING CARE WITH PT.
--- NOTE | 2020-07-09 16:31 | NUR ---
RIB TRIM SEPARATOR HERE, USING AYE CATHETER RT. FEMORAL. VSS. PT. IS NOT ON ANY VASOPRESSORS AT THIS TIME.
--- NOTE | 2020-07-09 17:13 | NUR ---
1ST UNIT OF PRBC'S STARTED BY IVON LOPEZ WITH HD. PT. SIGNED CONSENT.
--- NOTE | 2020-07-09 17:51 | NUR ---
1ST UNIT OF PRBC'S COMPLETED WITH HD. NO ADVERSE REACTION.
--- NOTE | 2020-07-09 18:30 | NUR ---
SBP 130'S-150'S DURING HEMODIALYSIS. PT. HAS NOT NEEDED ANY VASOPRESSORS DURING TX.
--- NOTE | 2020-07-09 19:45 | NUR ---
Dialysis finished. Pt having episode of nausea. Zofran given. 2 L taken off per pharmacy account director and 2 PRBC infused.
--- NOTE | 2020-07-09 20:30 | NUR ---
Report given to IVON Garcia.
[2020-07-09] MEDS ORDERED: EPOETIN ALFA 10,000 UNIT/1 ML VIAL SC ONE (21:00)
--- NOTE | 2020-07-09 21:24 | NUR ---
Pt transferred to 293 A on monitor with no issues. Care endorsed to IVON Garcia.
--- NOTE | 2020-07-09 21:30 | NUR ---
RECEIVED PATIENT FROM ICU VIA HOSPITAL BED. NO S/S OF DISTRESS NOTED. PATIENT ON TELE BOX 75 WITH SR 72 WITH BBB AND ELEVATED ST. BED IN LOWEST POSITION WITH SIDE RAILS UP X 2. CALL HART WITHIN REACH. ALARM ON. CONTINUE TO MONITOR FOR CHANGES Q1H AND PRN.
[2020-07-09] MEDS: ATORVASTATIN 20 MG TAB PO SCH (22:31)
--- NOTE | 2020-07-09 22:39 | NUR ---
ACCU-CHECK, BS 174. INSULIN GIVEN ORDERED. CONTINUE TO MONITOR.
[2020-07-09 23:32] LABS: BUN/Creatinine Ratio 11.2; Potassium 3.7 mmol/L (3.5-5.1)
--- NOTE | 2020-07-10 00:29 | NUR ---
NPO FROM NOW. FOOD AND WATER REMOVED FROM BEDSIDE. PATIENT VERBALIZED UNDERSTANDING. CONTINUE TO MONITOR.
--- NOTE | 2020-07-10 03:05 | NUR ---
PATIENT SLEEPING. NO S/S OF DISTRESS NOTED. CONTINUE TO MONITOR.
[2020-07-10] MEDS: SODIUM BICARBONATE 50ML VIAL 50 ML in SOD CHL 0.45% 1,000 ML IV SCH (05:39)
[2020-07-10 06:00] VITALS: BP 137/65
[2020-07-10] MEDS: InsuLIN REG 1unit/0.01ml Soln (100units/ml) SC SCH ×4 (06:22→22:26)
[2020-07-10] MEDS: ACCU-CHEK COMFORT CURVE STRIP VI SCH ×4 (06:22→22:18)
--- NOTE | 2020-07-10 06:22 | NUR ---
ACCU-CHECK, BS 98. NO COVERAGE. CONTINUE TO MONITOR.
--- NOTE | 2020-07-10 08:00 | NUR ---
Morning note Patient resting in bed with even and unlabored respirations, no distress noted. Instructed patient on POC, fall precautions and to call for assistance as needed. patient verbalized understanding. Fall precautions in place with call light within reach.
[2020-07-10] MEDS: ONDANSETRON HCL 4 MG/2 ML VIAL IV PRN ×4 (08:56→22:33)
[2020-07-10] MEDS: PANTOPRAZOLE 40 MG TAB PO SCH (08:56)
[2020-07-10] MEDS: METOPROLOL TARTRATE 25 MG TAB PO SCH ×2 (08:56→22:17)
[2020-07-10 09:00] VITALS: BP 138/69
--- NOTE | 2020-07-10 10:26 | NUR ---
Consents signed and placed in hard chart
--- NOTE | 2020-07-10 10:44 | NUR ---
Patient transferred to manager cath lab via hospital bed Respirations even and unlabored, no distress noted. IV patent with no s/s of leaking or infiltration.
--- NOTE | 2020-07-10 10:46 | NUR ---
Attempted to update patient's next of kin No answer. Voicemail left.
[2020-07-10] MEDS ORDERED: LIDOCAINE 2%HCL (LOCAL ANESTH.) INJ 20ML MDV ONE (11:24)
[2020-07-10] MEDS ORDERED: fentaNYL CITRATE 100 MCG/2 ML VL ONE (11:30)
[2020-07-10] MEDS ORDERED: MIDAZOLAM HCL 1MG/1ML-2 ML VIAL ONE (11:31)
--- NOTE | 2020-07-10 11:40 | NUR ---
Updated patient's RE: patient's status. Patient's returned RN's phone call. Password obtained. Update provided.
--- NOTE | 2020-07-10 11:48 | NUR ---
RE: Intervention Patient off unit at scheduled procedure. Addendum: 07/10/20 at 1149 by Sloane Pena RN Amended: Links added.
[2020-07-10] MEDS ORDERED: HEPARIN SODIUM (PORCINE) 5000 UNITS/ML 1ML VIAL ONE ×2 (11:58→12:01)
--- NOTE | 2020-07-10 12:00 | NUR ---
RE: intervention Patient off unit at scheduled procedure. Addendum: 07/10/20 at 1243 by Sloane Pena RN Amended: Links added.
--- NOTE | 2020-07-10 12:06 | NUR ---
assessment Patient is a 75 year old male who is alert and oriented. Patient is out of his room for a procedure. Per patients Young prior to admission patient lived home with her and was independent. Patient has no DME. Patients PCP is Dr Mukherjee. Patient has a consult for new dialysis chair time, fww, and home health safety eval. MD orders have been sent to [facility] correctional counselor/case manager. Dialysis order has been sent to [facility], home health order has been sent to [facility], and walker order has been sent to . waiting conduit worker back now. Per Young patient will return home with her on discharge and she will transport patient home. Young verbalized understanding and agreed to discharge plan home. Addendum: 07/10/20 at 1214 by Marla HDZ Amended: Links added.
--- NOTE | 2020-07-10 12:21 | NUR ---
RAIZA discussed with Dr. Denton
--- NOTE | 2020-07-10 12:55 | NUR ---
Nutrition Assessment Note please see attached link for complete assessment Est energy needs BW 75 [id number] kcal (30-33 kcal/kg BW) Est protein needs: 90-105 (1.2-1.4g/kg BW) will reassess prn Addendum: 07/10/20 at [address] Amended: Links added.
[2020-07-10] MEDS ORDERED: hydrALAZINE HCL 20 MG/ML VL ONE (12:57)
[2020-07-10] MEDS ORDERED: hydrALAZINE HCL 20 MG/ML VL IV ONE (13:00)
--- NOTE | 2020-07-10 13:30 | NUR ---
Patient returned to unit via hospital bed Tunnel catheter dressing site is clean, dry and intact. No bleeding or swelling noted. Right groin dressing is clean, dry and intact. Ecchymosis noted in the right groin; present prior to procedure. Respirations even and unlabored, no distress noted. Call light within reach.
[2020-07-10 14:56] LABS: Basophils # (auto) 0 10 ^3/uL (0-0.2); Eosinophils # (auto) 0 10 ^3/uL (0-0.8); Eosinophils % (auto) 0.7 % (0.0-7.0); Hematocrit 26.9 % (41.0-53.0); Hemoglobin 9.2 g/dL (13.5-17.5); Lymphocytes # (auto) 0.2 10 ^3/uL (0.4-5.4); Mean Corpuscular Hgb Conc. 34.2 g/dL (32.0-36.0); Monocytes # (auto) 0.5 10 ^3/uL (0-1.3)
[2020-07-10 14:58] LABS: Basophils % (auto) 0.2 % (0.0-2.0); Lymphocytes % (auto) 3.1 % (10.0-50.0); Mean Corpuscular Hemoglobin 30.4 pg (28.0-32.0); Mean Corpuscular Volume 88.8 fL (80.0-100.0); Monocytes % (auto) 7.7 % (0.0-12.0); Neutrophils # (auto) 5.9 10 ^3/uL (1.6-8.6); Neutrophils % (auto) 88.3 % (37.0-80.0); Nucleated Red Blood Cells % 0.2 %; Platelet Count (auto) 49 10^3/uL (140-450); Red Blood Cells 3.03 10^6/uL (4.5-5.90); Red Cell Distribution Width 15.5 % (11.8-14.3); White Blood Cell 6.7 10^3/uL (4.4-10.8)
[2020-07-10 15:15] LABS: BUN/Creatinine Ratio 10.7; Calcium 6.7 mg/dL (8.5-10.1)
--- NOTE | 2020-07-10 16:08 | NUR ---
re-assessment Per Jesika at they have received order and will deliver once auth has been put in. Kiara disease case manager is working on auth. All paperwork has been sent to [facility] this morning. Addendum: 07/10/20 at 1609 by Marla HDZ Amended: Links added.
[2020-07-10 16:23] LABS: Hepatitis A Ab IgM Negative; Hepatitis B Core IgM Negative
[2020-07-10 16:26] LABS: Hepatitis B Surface Antigen Negative (Negative); Hepatitis C Antibody Negative (Negative)
--- NOTE | 2020-07-10 16:30 | NUR ---
Patient resting in bed with eyes closed Respirations even and unlabored, no distress noted. Dressing to the right groin is clean, dry and intact. Dressing to the right upper chest is clean, dry and intact. Call light within reach.
[2020-07-10 17:00] VITALS: BP 147/78
--- NOTE | 2020-07-10 17:53 | NUR ---
RE-ASSESSMENT Per Yadira at [facility] she has accepted patient for service within 48 hours of discharge. Kiara shelter case manager is working on auth. All ss consults will be turfed back to [facility] starting 07/11/2020, RAMÓN, Pawel, and [facility] time. Addendum: 07/10/20 at 1754 by Marla HDZ Amended: Links added.
--- NOTE | 2020-07-10 18:58 | NUR ---
Closing note Patient resting in bed with even and unlabored respirations, no distress noted. Fall precautions in place with call light within reach; bed alarm on for safety. Dressing to the right groin and the right chest are clean, dry and intact.
--- NOTE | 2020-07-10 19:29 | NUR ---
Care endorsed to IVON Farmer.
--- NOTE | 2020-07-10 20:00 | NUR ---
Opening Shift Note Assumed care of patient, awake, AAOx4. No S/S of distress/SOB or pain. Bed in lowest locked position, side rails up x2, call light within reach. Instructed on POC and to call for assist PRN, will continue to monitor for changes Q1hr and PRN.
[2020-07-10] MEDS: ATORVASTATIN 20 MG TAB PO SCH (22:17)
[2020-07-10 22:31] VITALS: BP 144/65
[2020-07-11 05:00] VITALS: BP 149/70
[2020-07-11] MEDS: ACCU-CHEK COMFORT CURVE STRIP VI SCH ×4 (06:25→22:02)
[2020-07-11] MEDS: InsuLIN REG 1unit/0.01ml Soln (100units/ml) SC SCH ×4 (06:25→22:07)
[2020-07-11] MEDS ORDERED: SODIUM CHL 0.9% 1000 ML BAG XX ONE (07:00)
[2020-07-11 07:07] LABS: Hemoglobin 8.8 g/dL (13.5-17.5); Mean Corpuscular Hemoglobin 30.9 pg (28.0-32.0)
[2020-07-11 07:10] LABS: Hematocrit 25.4 % (41.0-53.0); Mean Corpuscular Hgb Conc. 34.7 g/dL (32.0-36.0); Mean Corpuscular Volume 89.2 fL (80.0-100.0); Platelet Count (auto) 50 10^3/uL (140-450); Red Blood Cells 2.84 10^6/uL (4.5-5.90); Red Cell Distribution Width 15.6 % (11.8-14.3); White Blood Cell 6.9 10^3/uL (4.4-10.8)
[2020-07-11 07:19] LABS: BUN/Creatinine Ratio 10.2; Calcium 6.8 mg/dL (8.5-10.1); Potassium 3.5 mmol/L (3.5-5.1)
[2020-07-11 07:20] LABS: % Iron Saturation 14.8 % (20-55)
[2020-07-11 07:41] LABS: Basophils % (manual) 0 (0.0-2.0); Blast Cells 0; Metamyelocytes % 0; Promyelocytes % 0; Reactive Lymphocytes 0
[2020-07-11 08:58] LABS: Band Neutrophils % (manual) 1; Eosinophils % (manual) 1 (0-7); Lymphocytes % (manual) 7 (10.0-50.0); Monocytes % (manual) 6 (0-12); Myelocytes % 1
[2020-07-11 09:00] VITALS: BP 151/68
[2020-07-11] MEDS: ONDANSETRON HCL 4 MG/2 ML VIAL IV PRN ×2 (10:24→16:30)
[2020-07-11] MEDS: PANTOPRAZOLE 40 MG TAB PO SCH (10:24)
[2020-07-11] MEDS: METOPROLOL TARTRATE 25 MG TAB PO SCH ×2 (10:24→22:02)
--- NOTE | 2020-07-11 11:08 | NUR ---
study assistant at bedside
--- NOTE | 2020-07-11 11:10 | NUR ---
Patient ambulating in hallway with PT restaurant assistant. FWW used as assistive device.
--- NOTE | 2020-07-11 11:36 | NUR ---
MD was at bedside - Dr. Godfrey POC discussed with this RN. Order received and read back to verify. MD updated that patient did have a COVID-19 test this hospital visit. MD verbalized understanding.
--- NOTE | 2020-07-11 11:49 | NUR ---
RE: "Heparin Antibodies" order Spoke with Daniela in lab. Order to be placed.
[2020-07-11 12:00] VITALS: BP 145/68
--- NOTE | 2020-07-11 12:47 | NUR ---
Patient okay for discharge per Dr. Contreras.
[2020-07-11] MEDS ORDERED: ATOR20TA50 PO (14:08)
--- NOTE | 2020-07-11 15:18 | NUR ---
Patient's called for an update Password obtained. Update provided. Patient's aware of discharge & transportation need for after dialysis.
--- NOTE | 2020-07-11 16:00 | NUR ---
D/C Planning Placed follow up called to JAI Griffith this morning regarding authorization for [facility]. Per JAI Griffith authorization will be given to facility. Contact [facility] regarding chair time. Chair time pending.
--- NOTE | 2020-07-11 16:19 | NUR ---
hris administrator at bedside
--- NOTE | 2020-07-11 16:26 | NUR ---
RE: scheduled heparin order with dialysis - medication non-administered Medication non-administered per Dr. Godfrey's order. hybrid derivatives trader aware. Addendum: 07/11/20 at 1656 by Sloane Pena RN Scheduled Heparin is for dialysis packing.
[2020-07-11 17:00] VITALS: BP 151/75
--- NOTE | 2020-07-11 17:35 | NUR ---
Paged on-call SW RE: arrangement of HD chair time No documentation RE: HD chair time arrangement. This RN is attempting to discharge patient per MD order.
--- NOTE | 2020-07-11 17:44 | NUR ---
Spoke with Kiara on-call JAI RE: HD chair time for discharge If HD chair time is not documented by SW then chair time has not been arranged per JAI Craig.
--- NOTE | 2020-07-11 17:49 | NUR ---
Called MD to notify Called Dr. Je Borden to notify the HD chair time has not been arranged per SW documentation and Kiara, on-call CM. Voicemail left.
--- NOTE | 2020-07-11 17:51 | NUR ---
Updated patient's & patient on POC/discharge Mrs. Renee verbalized understanding. Patient updated on POC/Discharge. Patient verbalized understanding.
--- NOTE | 2020-07-11 18:25 | NUR ---
Closing note Patient resting in bed with even and unlabored respirations, no distress noted. Fall precautions in place with call light within reach. site safety coordinator at bedside.
--- NOTE | 2020-07-11 19:02 | NUR ---
Care endorsed to IVON Farmer.
--- NOTE | 2020-07-11 19:50 | NUR ---
Opening Shift Note Assumed care of patient, awake, AAOx4. No S/S of distress/SOB or pain. On RA and ambulatory to toilet. Bed in lowest locked position, side rails up x2, call light within reach. Instructed on POC and to call for assist PRN, will continue to monitor for changes Q1hr and PRN.
[2020-07-11] MEDS ORDERED: EPOETIN ALFA 10,000 UNIT/1 ML VIAL SC ONE (21:00)
[2020-07-11] MEDS: ATORVASTATIN 20 MG TAB PO SCH (22:02)
[2020-07-11 22:25] VITALS: BP 146/60
[2020-07-12 05:00] VITALS: BP 148/70
[2020-07-12] MEDS: ACCU-CHEK COMFORT CURVE STRIP VI SCH ×3 (06:24→17:00)
[2020-07-12] MEDS: InsuLIN REG 1unit/0.01ml Soln (100units/ml) SC SCH ×3 (06:25→17:00)
--- NOTE | 2020-07-12 06:31 | NUR ---
PATIENTS RUC TUNNEL CATHETER LEAKING SMALL AMOUNT OF BLOOD. STILL INTACT BUT ACTIVELY BLEEDING. WILL NOTIFY MD AND RELAY TO ONCOMING DAYSHIFT RN TO DETERMINE WHAT SHOULD BE DONE.
--- NOTE | 2020-07-12 07:40 | NUR ---
Patient clear for discharge per Dr. Trejo
[2020-07-12] MEDS ORDERED: SODIUM CHLORIDE LOCK 10 ML ONE (08:15)
[2020-07-12] MEDS ORDERED: FLUMAZENIL 0.1 MG/ML INJ 10ML MDV IV ONE (08:15)
[2020-07-12] MEDS ORDERED: LIDOCAINE VISCOUS 2% 15ML UD ONE (08:15)
[2020-07-12] MEDS ORDERED: NALOXONE HCL 0.4 MG/ML VIAL ONE (08:15)
[2020-07-12] MEDS ORDERED: fentaNYL CITRATE 100 MCG/2 ML VL ONE (08:16)
[2020-07-12] MEDS ORDERED: diphenhdrAMINE HCL 50 MG/1 ML VL ONE (08:16)
[2020-07-12] MEDS ORDERED: MIDAZOLAM HCL 5 MG/ML-1ML VIAL ONE (08:16)
[2020-07-12] MEDS: METOPROLOL TARTRATE 25 MG TAB PO SCH (08:44)
[2020-07-12] MEDS: PANTOPRAZOLE 40 MG TAB PO SCH (08:44)
[2020-07-12] MEDS: ONDANSETRON HCL 4 MG/2 ML VIAL IV PRN (08:50)
--- NOTE | 2020-07-12 08:54 | NUR ---
Called technical services coordinator office to notify MD of dialysis catheter site leaking Spoke with male office staff member.
[2020-07-12 09:00] VITALS: BP 155/67
--- NOTE | 2020-07-12 09:06 | NUR ---
Updated Dr. Godfrey RE: dialysis catheter site leaking blood. Informed MD that blood is pooled under the dressing with clot noted and that blood is leaking from bottom of the dressing. MD verbalized understanding. Order received and read back to verify. No pressure to be held at this time.
--- NOTE | 2020-07-12 09:35 | NUR ---
Stool specimen collected & sent to lab per MD order BM is formed, brown in color. No hematochezia noted. No melena noted.
--- NOTE | 2020-07-12 10:45 | NUR ---
Dr. Du was at bedside MD changed dressing to the dialysis catheter access site. MD requested 5 pound weight be applied to catheter access site for minimum of 1 hour and for patient to remain in flat position for 2 hours. Patient verbalized understanding to POC. 5 pound weight applied to catheter access site per MD request. Patient tolerating well. Patient in supine position with call light within reach. Respirations even and unlabored, no distress noted.
--- NOTE | 2020-07-12 10:46 | NUR ---
was at bedside - Dr. Denton
--- NOTE | 2020-07-12 11:20 | NUR ---
1115 07/12/20 - Faxed to [facility] at [phone], face sheet, order coordinate with [facility] block and case maker for weekly CBC x 4 weeks with PCP beginning 3-5 days after discharge (d/c home 07/12/20), H/P, labs, progress notes and discharge summary. Pending review by [facility] block and case maker and arrangement. Addendum: 07/12/20 at 1613 by Jayleen Dunaway RN, CM 1600 07/12/20 - Contacted [facility] block and case maker at [phone], spoke with block and case maker Heike who acknowledge receipt all faxed documents and stated packet sent to PCP to make arrangements.
--- NOTE | 2020-07-12 11:45 | NUR ---
RE: Dialysis catheter access site Dressing under 5 pound sandbag is saturated. Sandbag to remain in place per MD. Patient remains in flat position. Respirations even and unlabored, no distress noted. Call light within reach.
--- NOTE | 2020-07-12 12:43 | NUR ---
Contacted radiology department RE: dialysis catheter site continued to bleed [address] per MD order. Patient has remained supine for 2 hours per MD order. Dressing to dialysis catheter site is saturated with blood. Blood leaking from the bottom edge of dressing. Respirations even and unlabored, no distress noted. Spoke with Andra who will relay information to Dr. Du.
--- NOTE | 2020-07-12 12:45 | NUR ---
RE: Dialysis access site bleeding - notified Dr. Du informed per Andra that dialysis access site continues to bleed. to come to bedside.
--- NOTE | 2020-07-12 12:47 | NUR ---
HD chair time arranged per Chikis Griffith HD chair time is M-W-Fr at 6:15 pm. First HD to be 07/14/20. Patient to be at dialysis center by 5:00pm. Patient has been updated and verbalized understanding.
--- NOTE | 2020-07-12 12:58 | NUR ---
Supplies left at bedside to redress dialysis catheter access site
[2020-07-12 13:00] VITALS: BP 155/66
--- NOTE | 2020-07-12 13:20 | NUR ---
ASSUMED CARE ASSUMED CARE OF PATIENT, REPORT RECEIVED FROM IVON DARBY
--- NOTE | 2020-07-12 13:29 | NUR ---
Care endorsed to IVON Teixeira. Patient resting in bed with even and unlabored respirations, no distress noted. 5 pound weight bag remains in place with patient in supine/flat position per MD order. Dr. Du aware per Andra, apprenticeship training representative, of dialysis catheter site continuing to bleed. Fall precautions in place with call light within reach; bed alarm on for safety.
--- NOTE | 2020-07-12 13:35 | NUR ---
DR CHESTER BRIGGS AT BEDSIDE FOR PROCEDURE. PATIENT TOLERATED WELL. PATIENT TO LAY SUPINE WITH 10 LB WEIGHT FOR 1 HR.
--- NOTE | 2020-07-12 14:13 | NUR ---
D/C Planning Placed follow up called to [facility] advising me patient chair time is M-W-Fr at 6:15 pm. First treatment will be on 07/14/20 at 5:00pm for intake. Informed IVON Teixeira.
--- NOTE | 2020-07-12 14:47 | NUR ---
RADIOLOGY UPDATED DRESSMAKER HELPER, NUNU. PATIENT HAS NO BLEEDING FROM SITE.
[2020-07-12 14:54] VITALS: BP 155/67
--- NOTE | 2020-07-12 14:54 | NUR ---
Grey HUGGINS LEFT MESSAGE RE: PATIENT STATUS. WILL CONTINUE WITH PATIENT DISCHARGE. WILL CONTINUE TO MONITOR
--- NOTE | 2020-07-12 15:14 | NUR ---
Nutrition Followup Note Pt wt is 83.3 kg Pt was awake with no relatives at bedside when rounded this morning. Pt is with ESRD and per pt, receiving HD 3x/wk. Pt is with a Renal Standard diet, appetite is poor aeb ave 31% PO intake over 4 meals. Pt stated he does not like the food. Encouraged pt increase his PO intake to meet at least 75% of his meals. Will continue to monitor PO status, skin status, pertinent labs and weight trends. Will f/u in 3-5 days. Est energy needs BW 75 [id number] kcal (30-33 kcal/kg BW) Est protein needs: 90-105 (1.2-1.4g/kg BW) will reassess prn LABS: GLUC 114 H, BUN 70 H, CR 6.89 H, GFR 8 L, ALB 2.9 L GI: Pt had 1 BM on 07/12 per RN doc BS: 20 low risk. Refer to wound assessment report for full details. PES: Altered nutrition related lab values r.t current chronic medical condition aeb elev RFT hyperglycemia, hypocalcemia, mod hypoalb Comments 1) advance diet as medically feasible 2) refer to CDE on DC 3) continue current plan of care
--- NOTE | 2020-07-12 16:20 | NUR ---
LAB MRSA SWAB SENT PER MD ORDERS.
[2020-07-12 17:00] VITALS: BP 145/70
--- NOTE | 2020-07-12 17:10 | NUR ---
Discharge instructions given as ordered. Encourage to follow up with PMD as instructed. All questions and concerns addressed. Patient verbalized understanding. IV removed with catheter intact, pressure dressing applied. Telemetry unit returned to ICU. Patient taken to vehicle via wheelchair with all personal belongings & FWW, accompanied by staff . No distress noted at time of departure.
== END 2020-07-12 17:15 | disposition home health service (06) | DRG 871 ==
LOC: EDBD 21:32 → EDUNIT# 21:32 → ER 21:36 → TELE 21:37 → CATH ICU 07-07 16:00 → ICU WEST 07-09 16:11 → TELE-WESTW 07-09 21:38
PROVIDERS: ADMIT Nurse Practitioner; ATTEND Internal Medicine
PROC: 4A023N7 Measurement of Cardiac Sampling and Pressure, Left Heart, Percutaneous Approach (ICD-10-PCS; principal; 2020-07-07)
PROC: B211YZZ Fluoroscopy of Multiple Coronary Arteries using Other Contrast (ICD-10-PCS; 2020-07-07)
PROC: B215YZZ Fluoroscopy of Left Heart using Other Contrast (ICD-10-PCS; 2020-07-07)
PROC: 30233N1 Transfusion of Nonautologous Red Blood Cells into Peripheral Vein, Percutaneous Approach (ICD-10-PCS; 2020-07-07)
PROC: 5A1D70Z Performance of Urinary Filtration, Intermittent, Less than 6 Hours Per Day (ICD-10-PCS; 2020-07-07)
PROC: 06HY33Z Insertion of Infusion Device into Lower Vein, Percutaneous Approach (ICD-10-PCS; 2020-07-07)
PROC: 30233R1 Transfusion of Nonautologous Platelets into Peripheral Vein, Percutaneous Approach (ICD-10-PCS; 2020-07-08)
PROC: 5A1D70Z Performance of Urinary Filtration, Intermittent, Less than 6 Hours Per Day (ICD-10-PCS; 2020-07-09)
PROC: 0JH63XZ Insertion of Tunneled Vascular Access Device into Chest Subcutaneous Tissue and Fascia, Percutaneous Approach (ICD-10-PCS; 2020-07-10)
PROC: 02H633Z Insertion of Infusion Device into Right Atrium, Percutaneous Approach (ICD-10-PCS; 2020-07-10)
PROC: B5181ZA Fluoroscopy of Superior Vena Cava using Low Osmolar Contrast, Guidance (ICD-10-PCS; 2020-07-10)
PROC: B548ZZA Ultrasonography of Superior Vena Cava, Guidance (ICD-10-PCS; 2020-07-10)
PROC: 5A1D70Z Performance of Urinary Filtration, Intermittent, Less than 6 Hours Per Day (ICD-10-PCS; 2020-07-11)
DX: A41.9 Sepsis, unspecified organism (principal); I21.4 Non-ST elevation (NSTEMI) myocardial infarction; I50.43 Acute on chronic combined systolic (congestive) and diastolic (congestive) heart failure; J18.9 Pneumonia, unspecified organism; N18.6 End stage renal disease; N17.9 Acute kidney failure, unspecified; C90.00 Multiple myeloma not having achieved remission; E87.2 Acidosis; Z94.84 Stem cells transplant status; I13.2 Hypertensive heart and chronic kidney disease with heart failure and with stage 5 chronic kidney disease, or end stage renal disease; J44.0 Chronic obstructive pulmonary disease with (acute) lower respiratory infection; D63.1 Anemia in chronic kidney disease; E11.22 Type 2 diabetes mellitus with diabetic chronic kidney disease; E11.65 Type 2 diabetes mellitus with hyperglycemia; D69.6 Thrombocytopenia, unspecified; E83.52 Hypercalcemia; K59.00 Constipation, unspecified; Z20.828 Contact with and (suspected) exposure to other viral communicable diseases; E87.5 Hyperkalemia; I25.10 Atherosclerotic heart disease of native coronary artery without angina pectoris; I44.7 Left bundle-branch block, unspecified; Z99.2 Dependence on renal dialysis; Z90.49 Acquired absence of other specified parts of digestive tract; Z82.49 Family history of ischemic heart disease and other diseases of the circulatory system; Z82.5 Family history of asthma and other chronic lower respiratory diseases; Z92.3 Personal history of irradiation; Z79.82 Long term (current) use of aspirin; Z79.899 Other long term (current) drug therapy
CPT/HCPCS: 36415; 36561; 71045; 76775; 76942; 77001; 80048; 80053; 80074; 80076; 81001; 82010; 82270; 82570; 82728; 82784; 82962; 83010; 83540; 83550; 83605; 83615; 83735; 83880; 84132; 84156; 84300; 84443; 84484; 85007; 85014; 85018; 85025; 85027; 85045; 85379; 85610; 85652; 85730; 86141; 86334; 86335; 86850; 86900; 86901; 86920; 87040; 87070; 87081; 87086; 87804; 87880; 90935; 93005; 93306; 93458; 93970; 94640; 97110; 97116; 97530; 99152; 99153; 99291; G0378; J0610; J0885; J1642; J1815; J2250; J2405; J2543; J3490; Q9967

== ENCOUNTER 2020-07-13 19:18 | Emergency (ER) | payer OTHER ==
[~2020-07-13] VITALS: Ht 177.8 cm; Wt 83.0 kg
[~2020-07-13 19:18] MED LIST changes: -ASPI-394 PO; +ATOR20TA50 PO; -DEXA4TAB PO; -LISI-648 PO
[2020-07-13 20:00] VITALS: BP 167/67
== END 2020-07-13 21:42 | disposition home or self-care (01) ==
LOC: ER 19:19
DX: T82.838A Hemorrhage due to vascular prosthetic devices, implants and grafts, initial encounter (principal); E11.9 Type 2 diabetes mellitus without complications; E78.5 Hyperlipidemia, unspecified; I10 Essential (primary) hypertension; C90.00 Multiple myeloma not having achieved remission; E11.22 Type 2 diabetes mellitus with diabetic chronic kidney disease; I12.0 Hypertensive chronic kidney disease with stage 5 chronic kidney disease or end stage renal disease; N18.6 End stage renal disease; Z99.2 Dependence on renal dialysis; Z90.49 Acquired absence of other specified parts of digestive tract; Z86.73 Personal history of transient ischemic attack (TIA), and cerebral infarction without residual deficits

== ENCOUNTER 2020-07-14 05:53 | Emergency (ER) | payer OTHER ==
[~2020-07-14] VITALS: Ht 177.8 cm; Wt 75.3 kg
[2020-07-14 08:57] VITALS: BP 160/69
== END 2020-07-14 09:09 | disposition home or self-care (01) ==
LOC: ER 05:53
DX: T82.838A Hemorrhage due to vascular prosthetic devices, implants and grafts, initial encounter (principal); E11.9 Type 2 diabetes mellitus without complications; E78.5 Hyperlipidemia, unspecified; I10 Essential (primary) hypertension; Z48.01 Encounter for change or removal of surgical wound dressing; Z90.49 Acquired absence of other specified parts of digestive tract; Z86.73 Personal history of transient ischemic attack (TIA), and cerebral infarction without residual deficits

== ENCOUNTER 2020-09-17 22:55 | Inpatient (IN) | payer OTHER ==
[~2020-09-17] VITALS: Ht 180.3 cm; Wt 73.5 kg
[2020-09-17 23:36] LABS: Hemoglobin 7.6 g/dL (13.5-17.5)
[2020-09-17 23:38] LABS: Hematocrit 22.6 % (41.0-53.0); Mean Corpuscular Hemoglobin 32.1 pg (28.0-32.0); Mean Corpuscular Hgb Conc. 33.6 g/dL (32.0-36.0); Mean Corpuscular Volume 95.6 fL (80.0-100.0); Platelet Count (auto) 162 10^3/uL (140-450); Red Blood Cells 2.36 10^6/uL (4.5-5.90); Red Cell Distribution Width 19.1 % (11.8-14.3); White Blood Cell 9.2 10^3/uL (4.4-10.8)
[2020-09-17 23:49] LABS: Band Neutrophils % (manual) 0; Basophils % (manual) 0 (0.0-2.0); Blast Cells 0; Promyelocytes % 0; Reactive Lymphocytes 0
[2020-09-17 23:54] LABS: Alanine Aminotransferase 23 U/L (16-61); Albumin 3.6 g/dL (3.4-5.0); Anion Gap 14 (5-15); Aspartate Aminotransferase 21 U/L (15-37); Blood Urea Nitrogen 35 mg/dL (7-18); Calcium 9.6 mg/dL (8.5-10.1); Carbon Dioxide 23 mmol/L (21-32); Chloride 101 mmol/L (98-107); GFR African American 8 mL/min; GFR Non-African American 6 mL/min; Glucose 205 mg/dL (74-106); Potassium 4.6 mmol/L (3.5-5.1); Sodium 138 mmol/L (136-145)
[2020-09-17 23:58] LABS: INR 0.99 (0.9-1.15); Partial Thromboplastin Time 22.8 sec (23.0-31.2)
[2020-09-17 23:59] LABS: Alkaline Phosphatase 194 U/L (45-117); Bilirubin, Total 0.5 mg/dL (0.2-1.0); Total Protein 7.4 g/dL (6.4-8.2)
[2020-09-18] VITALS (8 sets, daily range): BP systolic 134–171; BP diastolic 63–88
[2020-09-18 00:10] LABS: Eosinophils % (manual) 4 (0-7); Lymphocytes % (manual) 23 (10.0-50.0); Metamyelocytes % 1; Monocytes % (manual) 10 (0-12); Myelocytes % 2
[2020-09-18] MEDS ORDERED: DexAMETHasone SOD PHOS 10MG/1ML VIAL INJ IV ONE (00:15)
[2020-09-18] MEDS ORDERED: MORPHINE SULF INJ 2 MG/ML SYRINGE 1ML IV PRN (01:00)
[2020-09-18] MEDS ORDERED: LABETALOL HCL 5 MG/ML 4ML SYRINGE IV ONE (01:00)
[2020-09-18] MEDS ORDERED: ACETAMINOPHEN 325 MG TAB PO PRN (01:00)
[2020-09-18] MEDS ORDERED: NITROGLYCERIN 0.4 MG SL TAB SL PRN (01:00)
[2020-09-18] MEDS ORDERED: DEXTROSE (50%) 50ML SYRG IV PRN (01:00)
[2020-09-18] MEDS ORDERED: TEMAZEPAM 15 MG CAP PO PRN (01:00)
[2020-09-18] MEDS ORDERED: ONDANSETRON HCL 4 MG/2 ML VIAL IV PRN (01:00)
[2020-09-18] MEDS ORDERED: ALBUTEROL SULF 2.5 MG/0.5ML(0.5%) NEB SOLN NEB PRN (01:45)
[2020-09-18] MEDS: DOXYCYCLINE 100MG/250ML 250 ML IV SCH ×2 (01:47→09:57)
[2020-09-18 02:24] LABS: Magnesium 2.2 mg/dL (1.6-2.6)
[2020-09-18 02:33] LABS: CRP High Sensitivity 2.57 mg/dL (< 0.3)
[2020-09-18 03:27] LABS: Lactic Acid w/Reflex 2.3 mmol/L (0.4-2.0)
[2020-09-18] MEDS ORDERED: CALC667C5 GT (04:54)
[2020-09-18] MEDS ORDERED: ALBUTEROL SULF HFA 90MCG INH 200DOSE IN SCH (06:00)
[2020-09-18] MEDS: ACCU-CHEK COMFORT CURVE STRIP VI SCH ×3 (06:41→17:28)
[2020-09-18] MEDS: InsuLIN REG 1unit/0.01ml Soln (100units/ml) SC SCH ×3 (06:43→17:28)
[2020-09-18] MEDS ORDERED: METOPROLOL TARTRATE 25 MG TAB PO SCH ×2 (10:00→10:15)
[2020-09-18] MEDS ORDERED: CHOLECALCIFEROL (VITD3) 2,000 UNIT CAP PO SCH (10:00)
[2020-09-18] MEDS ORDERED: ZINC SULFATE 220mg CAP or TAB PO SCH (10:00)
[2020-09-18] MEDS ORDERED: DexAMETHasone SOD PHOS 10MG/1ML VIAL INJ IV SCH (10:00)
[2020-09-18] MEDS ORDERED: PANTOPRAZOLE 40 MG TAB PO SCH (10:00)
[2020-09-18] MEDS ORDERED: ASCORBIC ACID 1,000 MG TAB PO SCH (10:00)
[2020-09-18] MEDS ORDERED: ASPirin 81 mg TAB PO SCH (10:00)
[2020-09-18] MEDS ORDERED: SODIUM CHL 0.9% 1000 ML BAG XX ONE (10:15)
[2020-09-18] MEDS ORDERED: IOHEXOL 350 MG/ML 100ML IJ ONE ×2 (11:38→12:06)
[2020-09-18] MEDS ORDERED: EPOETIN ALFA 10,000 UNIT/1 ML VIAL SC ONE (21:00)
[2020-09-18] MEDS ORDERED: ATORVASTATIN 20 MG TAB PO SCH (22:00)
[2020-09-19] MEDS ORDERED: CHOLECALCIFEROL (VITD3) 1,000UNIT=25mCg TAB PO SCH (10:00)
[2020-09-19] MEDS ORDERED: ASCORBIC ACID 500 MG TAB PO SCH (10:00)
== END 2020-09-18 21:50 | disposition home health service (06) | DRG 291 ==
LOC: EDBD 22:55 → ER 22:56 → TELE 22:57 → TELE-EAST 09-18 03:45 → TELE-CENTR 09-18 19:00
PROVIDERS: ADMIT Nurse Practitioner; ATTEND Hospitalist
PROC: 5A09357 Assistance with Respiratory Ventilation, Less than 24 Consecutive Hours, Continuous Positive Airway Pressure (ICD-10-PCS; principal; 2020-09-17)
PROC: 5A1D70Z Performance of Urinary Filtration, Intermittent, Less than 6 Hours Per Day (ICD-10-PCS; 2020-09-18)
DX: I13.2 Hypertensive heart and chronic kidney disease with heart failure and with stage 5 chronic kidney disease, or end stage renal disease (principal); J18.9 Pneumonia, unspecified organism; N18.6 End stage renal disease; I50.23 Acute on chronic systolic (congestive) heart failure; C90.00 Multiple myeloma not having achieved remission; N17.9 Acute kidney failure, unspecified; J44.0 Chronic obstructive pulmonary disease with (acute) lower respiratory infection; M48.55XA Collapsed vertebra, not elsewhere classified, thoracolumbar region, initial encounter for fracture; I42.9 Cardiomyopathy, unspecified; D63.1 Anemia in chronic kidney disease; R09.02 Hypoxemia; E78.5 Hyperlipidemia, unspecified; E11.22 Type 2 diabetes mellitus with diabetic chronic kidney disease; I25.10 Atherosclerotic heart disease of native coronary artery without angina pectoris; Z20.828 Contact with and (suspected) exposure to other viral communicable diseases; Z82.49 Family history of ischemic heart disease and other diseases of the circulatory system; Z82.5 Family history of asthma and other chronic lower respiratory diseases; Z86.73 Personal history of transient ischemic attack (TIA), and cerebral infarction without residual deficits; Z91.19 Patient's noncompliance with other medical treatment and regimen; Z99.2 Dependence on renal dialysis; I25.2 Old myocardial infarction; Z90.49 Acquired absence of other specified parts of digestive tract; Z80.9 Family history of malignant neoplasm, unspecified; Z79.84 Long term (current) use of oral hypoglycemic drugs
CPT/HCPCS: 36415; 36600; 71045; 71275; 80053; 82306; 82728; 82805; 82962; 83036; 83605; 83615; 83735; 83880; 83970; 84100; 84443; 84484; 85007; 85027; 85379; 85610; 85730; 86141; 86850; 86900; 86901; 86920; 87040; 87426; 90935; 93970; 94660; 99291; G0378; J0885; J1100; J1642; J1815; J3490

== ENCOUNTER 2020-11-17 13:43 | Inpatient (IN) | payer OTHER ==
[~2020-11-17] VITALS: Ht 177.8 cm; Wt 72.3 kg
[~2020-11-17 13:43] MED LIST changes: +CALC667C5 GT
[2020-11-17] MEDS ORDERED: FUROSEMIDE 20 MG/2 ML VIAL IV ONE (17:45)
[2020-11-17 17:54] LABS: Albumin 3.4 g/dL (3.4-5.0); Basophils % (auto) 0.5 % (0.0-2.0); Calcium 11.7 mg/dL (8.5-10.1); Eosinophils # (auto) 0.1 10 ^3/uL (0-0.8); Magnesium 2.6 mg/dL (1.6-2.6); Monocytes # (auto) 0.5 10 ^3/uL (0-1.3); Neutrophils # (auto) 9.1 10 ^3/uL (1.6-8.6); Potassium 4.9 mmol/L (3.5-5.1); White Blood Cell 10.3 10^3/uL (4.4-10.8)
[2020-11-17 17:56] LABS: Basophils # (auto) 0 10 ^3/uL (0-0.2); Eosinophils % (auto) 1.3 % (0.0-7.0); Hematocrit 19.6 % (41.0-53.0); Lymphocytes # (auto) 0.5 10 ^3/uL (0.4-5.4); Lymphocytes % (auto) 5.1 % (10.0-50.0); Mean Corpuscular Hemoglobin 34.9 pg (28.0-32.0); Mean Corpuscular Hgb Conc. 35.1 g/dL (32.0-36.0); Mean Corpuscular Volume 99.4 fL (80.0-100.0); Monocytes % (auto) 4.5 % (0.0-12.0); Neutrophils % (auto) 88.6 % (37.0-80.0); Nucleated Red Blood Cells % 0.1 %; Platelet Count (auto) 113 10^3/uL (140-450); Red Blood Cells 1.97 10^6/uL (4.5-5.90); Red Cell Distribution Width 15.9 % (11.8-14.3)
[2020-11-17 18:00] LABS: Lactic Acid w/Reflex 2.4 mmol/L (0.4-2.0)
[2020-11-17 18:04] LABS: BUN/Creatinine Ratio 4.1; Bilirubin, Total 0.4 mg/dL (0.2-1.0); Total Protein 7.2 g/dL (6.4-8.2)
[2020-11-17 18:09] LABS: Hemoglobin 6.9 g/dL (13.5-17.5)
[2020-11-17] MEDS ORDERED: ONDANSETRON HCL 4 MG/2 ML VIAL IV PRN (22:45)
[2020-11-17] MEDS ORDERED: MORPHINE SULF INJ 2 MG/ML SYRINGE 1ML IV PRN (22:45)
[2020-11-17] MEDS ORDERED: HYDROcodone-ACET 5/325MG TAB PO PRN (22:45)
[2020-11-17] MEDS ORDERED: DOCUSATE SOD 100 MG CAP PO PRN (22:45)
[2020-11-17] MEDS ORDERED: NITROGLYCERIN 0.4 MG SL TAB SL PRN (22:45)
[2020-11-17] MEDS ORDERED: DEXTROSE (50%) 50ML SYRG IV PRN (22:45)
[2020-11-17 23:15] LABS: Calcium 12.2 mg/dL (8.5-10.1); Potassium 4.9 mmol/L (3.5-5.1)
[2020-11-17 23:20] LABS: BUN/Creatinine Ratio 4.2
[2020-11-18] VITALS (7 sets, daily range): BP systolic 120–146; BP diastolic 57–73
[2020-11-18 00:25] LABS: INR 0.97 (0.9-1.15)
[2020-11-18 00:28] LABS: Partial Thromboplastin Time > 139.0 sec (23.0-31.2)
[2020-11-18] MEDS: hydrALAZINE HCL 20 MG/ML VL IV SCH ×5 (02:00→18:00)
[2020-11-18 03:23] LABS: INR 0.99 (0.9-1.15); Partial Thromboplastin Time 25.3 sec (23.0-31.2)
[2020-11-18] MEDS: SODIUM CHLOR 0.9% PF (SALINE LOCK) 10ML VIAL/SYR IV SCH ×3 (06:07→20:47)
[2020-11-18] MEDS: ACCU-CHEK COMFORT CURVE STRIP VI SCH ×4 (06:55→22:13)
[2020-11-18] MEDS: InsuLIN REG 1unit/0.01ml Soln (100units/ml) SC SCH ×3 (06:55→17:45)
[2020-11-18] MEDS ORDERED: CALCIUM ACETATE 667 MG CAP GT SCH (08:00)
[2020-11-18 10:16] LABS: Eosinophils # (auto) 0.1 10 ^3/uL (0-0.8); Lymphocytes # (auto) 0.7 10 ^3/uL (0.4-5.4); Nucleated Red Blood Cells % 0.1 %
[2020-11-18 10:19] LABS: Basophils # (auto) 0.1 10 ^3/uL (0-0.2); Basophils % (auto) 0.7 % (0.0-2.0); Eosinophils % (auto) 1.4 % (0.0-7.0); Hematocrit 18.6 % (41.0-53.0); Lymphocytes % (auto) 7.5 % (10.0-50.0); Mean Corpuscular Hemoglobin 34.8 pg (28.0-32.0); Mean Corpuscular Hgb Conc. 34.5 g/dL (32.0-36.0); Mean Corpuscular Volume 100.7 fL (80.0-100.0); Monocytes # (auto) 0.4 10 ^3/uL (0-1.3); Monocytes % (auto) 4.7 % (0.0-12.0); Neutrophils # (auto) 7.8 10 ^3/uL (1.6-8.6); Neutrophils % (auto) 85.7 % (37.0-80.0); Platelet Count (auto) 105 10^3/uL (140-450); Red Blood Cells 1.84 10^6/uL (4.5-5.90); White Blood Cell 9.1 10^3/uL (4.4-10.8)
[2020-11-18 10:29] LABS: Potassium 4.5 mmol/L (3.5-5.1)
[2020-11-18 10:37] LABS: Hemoglobin 6.4 g/dL (13.5-17.5)
[2020-11-18 10:40] LABS: Albumin 3.3 g/dL (3.4-5.0); BUN/Creatinine Ratio 4.3; Bilirubin, Total 0.7 mg/dL (0.2-1.0); Calcium 11.9 mg/dL (8.5-10.1); Total Protein 7.2 g/dL (6.4-8.2)
[2020-11-18] MEDS: ZINC SULFATE 220mg CAP or TAB PO SCH (10:40)
[2020-11-18] MEDS: ASCORBIC ACID 500 MG TAB PO SCH ×2 (10:40→22:07)
[2020-11-18] MEDS: MULTIPLE VITAMIN TAB PO SCH (10:40)
[2020-11-18] MEDS: FAMOTIDINE 20 MG TAB PO SCH (10:40)
[2020-11-18] MEDS: ASPirin-EC 81 mg tab PO SCH (10:40)
[2020-11-18] MEDS: ACETAMINOPHEN 325 MG TAB PO PRN (10:41)
[2020-11-18] MEDS: METOPROLOL TARTRATE 25 MG TAB PO SCH ×2 (10:42→22:07)
[2020-11-18] MEDS ORDERED: FUROSEMIDE 40 MG/4 ML VIAL IV ONE ×2 (14:45→18:45)
[2020-11-18 19:30] LABS: Hematocrit 21.9 % (41.0-53.0); Hemoglobin 7.6 g/dL (13.5-17.5)
[2020-11-18] MEDS ORDERED: ATORVASTATIN 20 MG TAB PO SCH (22:00)
[2020-11-18] MEDS ORDERED: InsuLIN REG 1unit/0.01ml Soln (100units/ml) SC SCH (22:00)
[2020-11-19 02:00] VITALS: BP 123/63
[2020-11-19] MEDS: hydrALAZINE HCL 20 MG/ML VL IV SCH ×3 (02:00→10:00)
[2020-11-19 05:00] VITALS: BP 137/79
[2020-11-19] MEDS: ACCU-CHEK COMFORT CURVE STRIP VI SCH ×2 (05:41→11:40)
[2020-11-19] MEDS: SODIUM CHLOR 0.9% PF (SALINE LOCK) 10ML VIAL/SYR IV SCH (05:41)
[2020-11-19] MEDS: InsuLIN REG 1unit/0.01ml Soln (100units/ml) SC SCH ×2 (05:41→12:31)
[2020-11-19 08:36] VITALS: BP 143/67
[2020-11-19] MEDS: ASPirin-EC 81 mg tab PO SCH (10:19)
[2020-11-19] MEDS: ZINC SULFATE 220mg CAP or TAB PO SCH (10:19)
[2020-11-19] MEDS: MULTIPLE VITAMIN TAB PO SCH (10:20)
[2020-11-19] MEDS: ASCORBIC ACID 500 MG TAB PO SCH (10:20)
[2020-11-19] MEDS: FAMOTIDINE 20 MG TAB PO SCH (10:20)
[2020-11-19] MEDS: ACETAMINOPHEN 325 MG TAB PO PRN (10:21)
[2020-11-19] MEDS: METOPROLOL TARTRATE 25 MG TAB PO SCH (12:00)
[2020-11-19 12:07] VITALS: BP 128/62
[2020-11-19 13:41] VITALS: BP 128/62
== END 2020-11-19 14:36 | disposition home or self-care (01) | DRG 291 ==
LOC: EDBD 13:43 → ER 13:43 → TELE 13:44 → CENTRAL 11-18 07:45 → TELE-CENTR 11-18 14:45
PROVIDERS: ADMIT Nurse Practitioner Family; ATTEND Nurse Practitioner Family
PROC: 30233N1 Transfusion of Nonautologous Red Blood Cells into Peripheral Vein, Percutaneous Approach (ICD-10-PCS; principal; 2020-11-17)
DX: I13.2 Hypertensive heart and chronic kidney disease with heart failure and with stage 5 chronic kidney disease, or end stage renal disease (principal); I50.33 Acute on chronic diastolic (congestive) heart failure; N18.6 End stage renal disease; C90.00 Multiple myeloma not having achieved remission; E87.2 Acidosis; E11.22 Type 2 diabetes mellitus with diabetic chronic kidney disease; E78.5 Hyperlipidemia, unspecified; R09.02 Hypoxemia; E83.52 Hypercalcemia; Z20.828 Contact with and (suspected) exposure to other viral communicable diseases; Z82.49 Family history of ischemic heart disease and other diseases of the circulatory system; Z82.5 Family history of asthma and other chronic lower respiratory diseases; Z86.73 Personal history of transient ischemic attack (TIA), and cerebral infarction without residual deficits; Z99.2 Dependence on renal dialysis; I25.2 Old myocardial infarction; Z90.49 Acquired absence of other specified parts of digestive tract; D63.1 Anemia in chronic kidney disease
CPT/HCPCS: 36415; 71045; 80048; 80053; 82550; 82962; 83605; 83735; 83880; 84484; 85014; 85018; 85025; 85379; 85610; 85730; 86850; 86900; 86901; 86920; 87040; 87081; 87426; 87804; 93005; 96374; G0378; J1815

== ENCOUNTER 2021-01-09 20:29 | Inpatient (IN) | payer OTHER ==
[~2021-01-09] VITALS: Ht 172.7 cm; Wt 74.0 kg
[2021-01-09 23:56] LABS: Hematocrit 21.7 % (41.0-53.0); Hemoglobin 7.3 g/dL (13.5-17.5); Mean Corpuscular Hemoglobin 37.4 pg (28.0-32.0); Mean Corpuscular Hgb Conc. 33.6 g/dL (32.0-36.0); Mean Corpuscular Volume 111.4 fL (80.0-100.0); Platelet Count (auto) 183 10^3/uL (140-450); Red Blood Cells 1.95 10^6/uL (4.5-5.90); White Blood Cell 12.8 10^3/uL (4.4-10.8)
[2021-01-10 00:03] LABS: Red Cell Distribution Width 20.4 % (11.8-14.3)
[2021-01-10 00:04] LABS: Basophils % (manual) 0 (0.0-2.0); Blast Cells 0; Eosinophils % (manual) 0 (0-7); Metamyelocytes % 0; Myelocytes % 0; Promyelocytes % 0; Reactive Lymphocytes 0
[2021-01-10 00:15] LABS: Albumin 2.5 g/dL (3.4-5.0)
[2021-01-10 00:19] LABS: BUN/Creatinine Ratio 7.5; Bilirubin, Total 0.4 mg/dL (0.2-1.0); Total Protein 5.9 g/dL (6.4-8.2)
[2021-01-10 00:30] LABS: Potassium 5.8 mmol/L (3.5-5.1)
[2021-01-10] MEDS ORDERED: ACETAMINOPHEN 500 MG TAB PO ONE (00:30)
[2021-01-10] MEDS ORDERED: fentaNYL CITRATE 100 MCG/2 ML VL IV ONE (00:30)
[2021-01-10 00:35] LABS: Band Neutrophils % (manual) 13; Lymphocytes % (manual) 13 (10.0-50.0); Monocytes % (manual) 1 (0-12)
[2021-01-10] MEDS ORDERED: DEXTROSE (50%) 50ML SYRG IV ONE (00:45)
[2021-01-10] MEDS ORDERED: SODIUM BICARBONATE 8.4% INJ 50ML SYRINGE IV ONE (00:45)
[2021-01-10] MEDS ORDERED: InsuLIN REG 1unit/0.01ml Soln (100units/ml) IV ONE (00:45)
[2021-01-10] MEDS ORDERED: CALCIUM GLUC 4.65meq/50ml D5AE 50 ML IV ONE (00:45)
[2021-01-10] MEDS ORDERED: AZITHROMYCIN 500MG/ 250ML 250 ML IV ONE (03:45)
[2021-01-10] MEDS ORDERED: cefTRIAXone 1GM/50ML D5W 50 ML IV ONE (03:45)
[2021-01-10] MEDS ORDERED: TEMAZEPAM 15 MG CAP PO PRN (05:00)
[2021-01-10] MEDS ORDERED: ONDANSETRON HCL 4 MG/2 ML VIAL IV PRN (05:00)
[2021-01-10] MEDS ORDERED: SODIUM ZIRCONIUM CYCL 10 GM PAK PO ONE (05:00)
[2021-01-10] MEDS ORDERED: ACETAMINOPHEN 325 MG TAB PO PRN (05:00)
[2021-01-10] MEDS ORDERED: NITROGLYCERIN 0.4 MG SL TAB SL PRN (05:00)
[2021-01-10] MEDS ORDERED: MORPHINE SULF INJ 2 MG/ML SYRINGE 1ML IV PRN (05:00)
[2021-01-10] MEDS: InsuLIN REG 1unit/0.01ml Soln (100units/ml) SC SCH ×4 (06:02→23:30)
[2021-01-10] MEDS: ACCU-CHEK COMFORT CURVE STRIP VI SCH ×4 (06:03→23:54)
[2021-01-10 08:30] LABS: BUN/Creatinine Ratio 7.3; Calcium 12.2 mg/dL (8.5-10.1); Potassium 5.2 mmol/L (3.5-5.1)
[2021-01-10] MEDS: CALCIUM ACETATE 667 MG CAP PO SCH ×3 (08:45→17:44)
[2021-01-10] MEDS: HYDROcodone-ACET 5/325MG TAB PO PRN (08:45)
[2021-01-10] MEDS: cefTRIAXone 1GM/50ML D5W 50 ML IV SCH (08:46)
[2021-01-10] MEDS: AZITHROMYCIN 500MG/ 250ML 250 ML IV SCH (11:39)
[2021-01-10] MEDS: METOPROLOL TARTRATE 25 MG TAB PO SCH (11:39)
[2021-01-10] MEDS: PANTOPRAZOLE 40 MG TAB PO SCH (11:40)
[2021-01-10] MEDS ORDERED: ZOLEDRONIC ACID 4 MG in SODIUM CHL 0.9% 100 ML IV ONE (12:45)
[2021-01-10] MEDS: MORPHINE SULFATE 4 MG/ML SYR/VIAL IV PRN ×2 (16:28→20:52)
[2021-01-10] MEDS: DEXTROSE (50%) 50ML SYRG IV PRN ×2 (17:55→17:56)
[2021-01-10] MEDS ORDERED: FERR1TAB17 PO (17:59)
[2021-01-10] MEDS ORDERED: ACET-1304 PO (18:19)
[2021-01-10] MEDS ORDERED: HYDR-4902 PO (18:19)
[2021-01-10] MEDS ORDERED: LORA0.5T20 PO (18:20)
[2021-01-10] MEDS ORDERED: BISA-4 PO (18:20)
[2021-01-10 22:55] VITALS: BP 115/63
[2021-01-11] MEDS: ATORVASTATIN 20 MG TAB PO SCH ×2 (00:10→21:03)
[2021-01-11] MEDS: METOPROLOL TARTRATE 25 MG TAB PO SCH ×3 (00:13→21:03)
[2021-01-11] MEDS: HYDROcodone-ACET 5/325MG TAB PO PRN ×2 (01:30→15:21)
[2021-01-11 05:00] VITALS: BP 145/76
[2021-01-11] MEDS: InsuLIN REG 1unit/0.01ml Soln (100units/ml) SC SCH ×4 (06:29→21:03)
[2021-01-11] MEDS: ACCU-CHEK COMFORT CURVE STRIP VI SCH ×4 (06:31→21:03)
[2021-01-11 06:32] LABS: White Blood Cell 13.3 10^3/uL (4.4-10.8)
[2021-01-11 06:34] LABS: Hematocrit 17.9 % (41.0-53.0); Mean Corpuscular Hgb Conc. 34.9 g/dL (32.0-36.0); Mean Corpuscular Volume 108.9 fL (80.0-100.0); Platelet Count (auto) 155 10^3/uL (140-450); Red Blood Cells 1.65 10^6/uL (4.5-5.90)
[2021-01-11 06:50] LABS: Hemoglobin 6.3 g/dL (13.5-17.5)
[2021-01-11 06:52] LABS: Basophils % (manual) 0 (0.0-2.0); Blast Cells 0; Eosinophils % (manual) 0 (0-7); Metamyelocytes % 0; Myelocytes % 0; Promyelocytes % 0; Reactive Lymphocytes 0
[2021-01-11 06:57] LABS: Albumin 2.4 g/dL (3.4-5.0); BUN/Creatinine Ratio 7.3; Calcium 12.5 mg/dL (8.5-10.1)
[2021-01-11 07:00] LABS: Bilirubin, Total 0.3 mg/dL (0.2-1.0); Potassium 5.8 mmol/L (3.5-5.1); Total Protein 5.4 g/dL (6.4-8.2)
[2021-01-11] MEDS ORDERED: SODIUM CHL 0.9% 1000 ML BAG XX ONE (07:00)
[2021-01-11 08:16] LABS: Band Neutrophils % (manual) 4; Lymphocytes % (manual) 9 (10.0-50.0); Monocytes % (manual) 5 (0-12)
[2021-01-11 08:44] VITALS: BP 122/66
[2021-01-11] MEDS: HEPARIN SODIUM (PORCINE) 5000 UNITS/ML 1ML VIAL SC SCH ×2 (10:00→21:03)
[2021-01-11] MEDS: PANTOPRAZOLE 40 MG TAB PO SCH (11:04)
[2021-01-11] MEDS: cefTRIAXone 1GM/50ML D5W 50 ML IV SCH (11:05)
[2021-01-11] MEDS: AZITHROMYCIN 500MG/ 250ML 250 ML IV SCH (11:05)
[2021-01-11] MEDS: MORPHINE SULFATE 4 MG/ML SYR/VIAL IV PRN ×2 (11:49→18:31)
[2021-01-11 13:06] VITALS: BP 108/40
[2021-01-11 16:50] VITALS: BP 142/74
[2021-01-11 17:02] VITALS: BP 134/76
[2021-01-11 21:00] VITALS: BP 144/67
[2021-01-11] MEDS ORDERED: EPOETIN ALFA 10,000 UNIT/1 ML VIAL SC ONE (21:00)
== END 2021-01-11 21:00 | disposition hospice, home (50) | DRG 840 ==
LOC: EDBD 20:29 → ER 20:33 → TELE 20:34 → TELE-CENTR 01-10 22:56
PROVIDERS: ADMIT Nurse Practitioner; ATTEND Internal Medicine
PROC: 5A1D70Z Performance of Urinary Filtration, Intermittent, Less than 6 Hours Per Day (ICD-10-PCS; principal; 2021-01-11)
DX: C90.00 Multiple myeloma not having achieved remission (principal); N18.6 End stage renal disease; J18.9 Pneumonia, unspecified organism; M48.55XA Collapsed vertebra, not elsewhere classified, thoracolumbar region, initial encounter for fracture; E44.0 Moderate protein-calorie malnutrition; I13.2 Hypertensive heart and chronic kidney disease with heart failure and with stage 5 chronic kidney disease, or end stage renal disease; J44.0 Chronic obstructive pulmonary disease with (acute) lower respiratory infection; J96.11 Chronic respiratory failure with hypoxia; I50.20 Unspecified systolic (congestive) heart failure; Z20.822 Contact with and (suspected) exposure to COVID-19; M54.9 Dorsalgia, unspecified; E87.5 Hyperkalemia; D63.8 Anemia in other chronic diseases classified elsewhere; E78.5 Hyperlipidemia, unspecified; E83.52 Hypercalcemia; E11.22 Type 2 diabetes mellitus with diabetic chronic kidney disease; R26.2 Difficulty in walking, not elsewhere classified; G89.29 Other chronic pain; Z90.49 Acquired absence of other specified parts of digestive tract; Z82.49 Family history of ischemic heart disease and other diseases of the circulatory system; Z82.5 Family history of asthma and other chronic lower respiratory diseases; Z86.73 Personal history of transient ischemic attack (TIA), and cerebral infarction without residual deficits; Z99.2 Dependence on renal dialysis
CPT/HCPCS: 36415; 71045; 72131; 80048; 80053; 82306; 82962; 83036; 83880; 83970; 84100; 85007; 85027; 87040; 87426; 90935; 93005; G0378; J0610; J0696; J0885; J1815; J3489